=== PATIENT | male | born 1940 | race Caucasian/White ===

== ENCOUNTER 2017-07-10 12:34 | Inpatient (IN) | payer OTHER ==
[2017-07-10] MEDS ORDERED: SODIUM CHLORIDE 0.9% 1000 ML INFUS.BAG IV ONE (12:45)
--- NOTE | 2017-07-10 12:45 | PDOC ---
History of Present Illness - General Chief Complaint: Blood Pressure Problem Stated Complaint: DEHYDRATION Time Seen by Provider: 07/10/17 12:44 - History of Present Illness Initial Comments: 07/10/17 12:59 Mr. 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 On presentation BP noted to be 84/53 with rectal temperature of 102.9. Allergies: NKDA Past History - Past Medical History Allergies/Adverse Reactions: Allergies Allergy/AdvReac Type Severity Reaction Status Date / Time shrimp Allergy Severe Verified 07/10/17 12:41 Home Medications: Ambulatory Orders Apixaban [Eliquis] 5 mg PO BID 03/19/16 Pravastatin Sodium 10 mg PO DAILY 03/19/16 Amiodarone HCl [Cordarone -] 200 mg PO DAILY #30 tablet 03/22/16 Amlodipine Besylate [Norvasc -] 5 mg PO DAILY #30 tablet 03/22/16 Carvedilol [Coreg -] 25 mg PO BID #60 tablet 03/22/16 Furosemide [Lasix -] 40 mg PO DAILY #30 tablet 03/22/16 Lisinopril [Prinivil] 20 mg PO BID #60 tablet 03/22/16 Spironolactone [Aldactone -] 25 mg PO DAILY #30 tablet 03/22/16 Unobtainable 07/10/17 Anemia: No Asthma: No Cancer: No Cardiac Disorders: Yes (A-Fib, Aortic Valve Replacement 02/2016.) CVA: No COPD: No CHF: No Dementia: No Diabetes: No GI Disorders: No Disorders: No HTN: Yes Hypercholesterolemia: No Liver Disease: No Seizures: No Thyroid Disease: No - Surgical History Abdominal Surgery: Yes (ing.hernia) Appendectomy: No Cardiac Surgery: Yes (Heart Valve Replacement 02/2016) Cholecystectomy: No Lung Surgery: No Neurologic Surgery: No Orthopedic Surgery: No - Immunization History Immunization Up to Date: Yes - Suicide/Smoking/Psychosocial Hx Smoking Status: No Smoking History: Never smoked Have you smoked in the past 12 months: No Number of Cigarettes Smoked Daily: 0 Information on smoking cessation initiated: No Hx Alcohol Use: No Drug/Substance Use Hx: No Substance Use Type: None Hx Substance Use Treatment: No Review of Systems - Review of Systems Comments:: 07/10/17 13:04 GENERAL/CONSTITUTIONAL: No fever or chills. No weakness. HEAD, EYES, EARS, NOSE AND THROAT: No change in vision. No ear pain or discharge. No sore throat. CARDIOVASCULAR: No chest pain or shortness of breath RESPIRATORY: No cough, wheezing, or hemoptysis. GASTROINTESTINAL: +3 days of diarrhea. No nausea, vomiting, or constipation. GENITOURINARY: No dysuria, frequency, or change in urination. MUSCULOSKELETAL: No joint or muscle swelling or pain. No neck or back pain. SKIN: No rash NEUROLOGIC: No headache, vertigo, loss of consciousness, or change in strength/ sensation. ENDOCRINE: No increased thirst. No abnormal weight change HEMATOLOGIC/LYMPHATIC: No anemia, easy bleeding, or history of blood clots. ALLERGIC/IMMUNOLOGIC: No hives or skin allergy. *Physical Exam - Vital Signs Last Vital Signs Temp Pulse Resp BP Pulse Ox 99.9 F H 77 16 84/53 95 07/10/17 12:41 07/10/17 12:41 07/10/17 12:41 07/10/17 12:41 07/10/17 12:41 - Physical Exam Comments: 07/10/17 13:04 GENERAL: Awake, alert, and fully oriented, in no acute distress HEAD: No signs of trauma, normocephalic, atraumatic EYES: PERRLA, EOMI, sclera anicteric, conjunctiva clear ENT: Auricles normal inspection, hearing grossly normal, nares patent, oropharynx clear without exudates. Moist mucosa NECK: Normal ROM, supple, no lymphadenopathy, JVD, or masses LUNGS: No distress, speaks full sentences, clear to auscultation bilaterally HEART: Regular rate and rhythm, normal S1 and S2, no murmurs, rubs or gallops, peripheral pulses normal and equal bilaterally. ABDOMEN: Soft, nontender, normoactive bowel sounds. No guarding, no rebound. No masses EXTREMITIES: Normal inspection, Normal range of motion, no edema. No clubbing or cyanosis. NEUROLOGICAL: Cranial nerves II through XII grossly intact. Normal speech, normal gait, no focal sensorimotor deficits SKIN: Warm, Dry, normal turgor, no rashes or lesions noted. ED Treatment Course - LABORATORY CBC & Chemistry Diagram: 07/10/17 13:17 07/10/17 13:17 Medical Decision Making - Medical Decision Making 07/10/17 16:25 Patient labs concerning for white count and lactate as below. Infection source unknown. On further interview patient described urological process last week believed to be cystoscopy. Urology physician Levon Zhang. Vanc/Zosyn given for empiric therapy and will admit pt for further IV ABX. Laboratory Results - last 24 hr 07/10/17 07/10/17 07/10/17 12:46 12:52 13:17 WBC 17.4 H D RBC 4.07 Hgb 12.9 D Hct 38.0 MCV 93.5 MCH 31.7 MCHC 33.9 RDW 13.5 Plt Count 150 D MPV 9.3 D Neutrophils % 87.2 H D Lymphocytes % 8.2 D Monocytes % 4.3 Eosinophils % 0.0 D Basophils % 0.3 PT with INR INR PTT (Actin FS) Sodium Potassium Chloride Carbon Dioxide Anion Gap BUN Creatinine Creat Clearance w eGFR Random Glucose Lactic Acid Calcium Total Bilirubin AST ALT Alkaline Phosphatase Creatine Kinase Troponin I Total Protein Albumin Stool Occult Blood Negative Blood Type O POSITIVE Antibody Screen Negative 07/10/17 07/10/17 07/10/17 13:17 13:17 13:17 WBC RBC Hgb Hct MCV MCH MCHC RDW Plt Count MPV Neutrophils % Lymphocytes % Monocytes % Eosinophils % Basophils % PT with INR 25.70 H INR 2.27 H PTT (Actin FS) 31.1 Sodium 136 Potassium 3.6 Chloride 103 Carbon Dioxide 22 Anion Gap 11 BUN 15 Creatinine 1.9 H D Creat Clearance w eGFR 34.73 Random Glucose 144 H D Lactic Acid 2.1 H* Calcium 7.9 L Total Bilirubin 1.1 H D AST 13 L D ALT 16 D Alkaline Phosphatase 108 Creatine Kinase 79 Troponin I 0.02 D Total Protein 6.1 L Albumin 3.3 L D Stool Occult Blood Blood Type Antibody Screen 07/10/17 16:49 *DC/Admit/Observation/Transfer Diagnosis at time of Disposition: Hypotension Qualifiers: Hypotension type: unspecified hypotension type Qualified Code(s): I95.9 - Hypotension, unspecified - Discharge Dispostion Admit: Yes - Referrals - Patient Instructions - Post Discharge Activity
--- NOTE | 2017-07-10 12:55 | PDOC ---
Attending Attestation - Resident Resident Name: Simeon Cotto - ED Attending Attestation I have performed the following: I have examined & evaluated the patient, The case was reviewed & discussed with the resident, I agree w/resident's findings & plan, Exceptions are as noted - HPI HPI: 07/10/17 12:52 77-year-old male AF on apixaban, HTN, diastolic dysfx, AVR + aortic root replacement presents with 3 days of copious diarrhea. Pt was at urologists office and found to be hypotensive and sent to ED for evaluation. Pt reports weakness and multiple episodes of non bloody diarrhea. No recent hospitalizations, antibiotics. Patient reports having a scope of his prostate 3 days ago at the urologist's office. Pt rectally febrile to 102.9 and hypotensive to 80/50. Denies chest pain, shortness of breath, headache, abdominal pain, lower extremity edema, urinary symptoms. PMD: Dr. Naomie Mejia - Physicial Exam PE: 07/10/17 13:37 GENERAL: Awake, alert, and fully oriented, in no acute distress. Diaphoretic HEAD: No signs of trauma EYES: PERRLA, EOMI, sclera anicteric, conjunctiva clear ENT: Auricles normal inspection, hearing grossly normal, nares patent, oropharynx clear without exudates. dry MM NECK: Normal ROM, supple, no lymphadenopathy, JVD, or masses LUNGS: Breath sounds equal, clear to auscultation bilaterally. No wheezes, and no crackles HEART: Regular rate and rhythm, normal S1 and S2, no murmurs, rubs or gallops ABDOMEN: Soft, nontender, normoactive bowel sounds. No guarding, no rebound. No masses EXTREMITIES: Normal range of motion, no edema. No clubbing or cyanosis. No cords, erythema, or tenderness NEUROLOGICAL: Normal speech, cranial nerves intact, negative pronator drift, 5/ 5 strength in all 4 extremities, normal sensation to light touch in all 4 extremities, normal cerebellar exam, normal gait, normal reflexes and tone SKIN: Warm, Dry, normal turgor, no rashes or lesions noted. - Medical Decision Making 07/10/17 13:38 77-year-old male with multiple medical problems presents with 3 days of copious diarrhea, hypotension, and fever. Patient likely septic either due to colitis or possibly from instrumentation to his prostate 3 days ago at the urologist's office. Will do a full infectious workup, cover broadly and admit
[2017-07-10] MEDS ORDERED: VANCOMYCIN 1 GRAM (PRE-DOCKED) 1,000 MG/250 ML BAG IVPB ONE ×2 (13:21→14:05)
[2017-07-10 13:30] LABS: BASOPHIL 0.3 % (0-2.0); MCH 31.7 pg (25.7-33.7); MCHC 33.9 g/dl (32.0-35.9); MEAN CELL VOLUME 93.5 fl (80-96); MEAN PLT VOLUME 9.3 fl (7.5-11.1); NEUTROPHILS 87.2 % (42.8-82.8); PLATELET COUNT 150 K/MM3 (134-434); RDW 13.5 % (11.9-15.9); WHITE BLOOD COUNT 17.4 K/mm3 (4.0-10.0)
[2017-07-10] MEDS ORDERED: PIPERACILLIN/TAZOB 3.375 GM/50 ML PRE-DOCKED IVPB ONE (13:30)
[2017-07-10] MEDS ORDERED: SODIUM CHLORIDE 0.9% 500 ML INFUS.BAG IV ONE (13:52)
[2017-07-10 13:54] LABS: INR 2.27 (0.82-1.09); PROTHROMBIN TIME (PATIENT) 25.7 SEC (9.98-11.88)
[2017-07-10 13:56] LABS: ACTIVATED PTT 31.1 SECONDS (26.9-34.4); ALBUMIN 3.3 g/dl (3.4-5.0); ANION GAP 11 (8-16); BILIRUBIN,TOTAL 1.1 mg/dL (0.2-1.0); CALCIUM 7.9 mg/dL (8.5-10.1); CO2 22 mmol/L (21-32); CPK 79 IU/L (39-308); CREATININE 1.9 mg/dL (0.7-1.3); GLUCOSE,RANDOM 144 mg/dL (74-106); SGOT/AST 13 U/L (15-37); SGPT/ALT 16 U/L (12-78); TOT PROT 6.1 g/dl (6.4-8.2)
[2017-07-10 13:58] LABS: ALK PHOS 108 U/L (45-117); TROPONIN I 0.02 ng/ml (0.00-0.05)
[2017-07-10] MEDS ORDERED: PIPERACILLIN/TAZOB 3.375 GM 3.375 GM/50 ML BAG IVPB ONE (14:04)
[2017-07-10 16:39] LABS: URINE APPEARANCE SLCLOUDY; URINE BILIRUBIN NEGATIVE (NEGATIVE); URINE BLOOD 3+ (NEGATIVE); URINE COLOR AMBER; URINE GLUCOSE (UA) NEGATIVE (NEGATIVE); URINE KETONE NEGATIVE (NEGATIVE); URINE NITRITE NEGATIVE (NEGATIVE); URINE UROBILINOGEN NEGATIVE mg/dL (0.2-1.0)
[2017-07-10 16:44] LABS: URINE PROTEIN 2+ (NEGATIVE)
[2017-07-10] MEDS ORDERED: SODIUM CHLORIDE 1,000 ML IV SCH ×2 (16:45→16:47)
[2017-07-10 16:46] LABS: URINE HYALINE CAST 15 /lpf; URINE MUCUS RARE; URINE RBC 163 /hpf (0-3); URINE WBC 19 /hpf (3-5)
[2017-07-10 18:20] LABS: URINE LEUK ESTERASE Negative (NEGATIVE)
[2017-07-10] MEDS: APIXABAN 5 MG TABLET PO SCH (21:10)
[2017-07-10] MEDS: PIPERACILLIN/TAZOB 2.25 GM 2.25 GM/50 ML BAG IVPB SCH (21:11)
[2017-07-11] MEDS: PIPERACILLIN/TAZOB 2.25 GM 2.25 GM/50 ML BAG IVPB SCH ×2 (03:22→09:42)
--- NOTE | 2017-07-11 07:50 | PN ---
Progress Note, Physician Chief Complaint: ID 77 year male history of aortic root replacement and AVR presents with fever an chills after a prostate biopsy 4 days. Got IV antibiotics in office followed by oral therapy antibiotic. Given Zosyn - Current Medication List Current Medications: Active Medications Acetaminophen (Tylenol -) 650 mg PO Q6H PRN PRN Reason: FEVER OR PAIN Amiodarone HCl (Cordarone -) 200 mg PO DAILY CARLYLE Apixaban (Eliquis -) 5 mg PO BID [facility] Last Admin: 07/10/17 21:10 Dose: 5 mg Piperacillin/Tazobactam/Dextrose (Zosyn 2.25gm Ivpb (Premix)) 2.25 gm in 50 mls @ 100 mls/hr IVPB Q6H-IV CARLYLE PRN Reason: Protocol Sodium Chloride (Normal Saline -) 1,000 mls @ 60 mls/hr IV ASDIR [facility] Last Admin: 07/10/17 18:10 Dose: 60 mls/hr - Objective Vital Signs: Vital Signs Temperature 99 F 07/11/17 06:05 Pulse Rate 92 H 07/11/17 06:05 Respiratory Rate 20 07/11/17 06:05 Blood Pressure 104/64 07/11/17 06:05 O2 Sat by Pulse Oximetry (%) 96 07/10/17 21:00 Constitutional: Yes: Well Nourished, No Distress HENT: Yes: WNL, Atraumatic Neck: Yes: WNL, Supple Cardiovascular: Yes: Murmur, S1, S2 Respiratory: Yes: WNL, Regular, CTA Bilaterally Gastrointestinal: Yes: Soft Labs: INR, PTT INR 2.27 (0.82-1.09) H 07/10/17 13:17 Assessment/Plan Microbiology Laboratory Tests 07/10/17 07/10/17 07/10/17 13:17 13:17 13:17 WBC 17.4 H D Hgb 12.9 D Hct 38.0 Plt Count 150 D INR 2.27 H BUN 15 Creatinine 1.9 H D Lactic Acid Total Bilirubin 1.1 H D AST 13 L D ALT 16 D Ur Leukocyte Esterase 07/10/17 07/10/17 07/10/17 13:17 16:20 16:20 WBC Hgb Hct Plt Count INR BUN Creatinine Lactic Acid 2.1 H* 1.7 Total Bilirubin AST ALT Ur Leukocyte Esterase Negative 07/11/17 06:30 WBC Pending Hgb Pending Hct Pending Plt Count Pending INR BUN Creatinine Lactic Acid Total Bilirubin AST ALT Ur Leukocyte Esterase Assessment Sepsis post prostate biopsy previous antibiotic given ? resistant organism No positive blood culture so far this am Plan Meropenem for ? ESBL pending cultures Possible nothing will grow on culture Vinny CAMACHO
[2017-07-11 08:25] LABS: BASOPHIL 0.2 % (0-2.0); EOSINOPHIL 0.1 % (0-4.5); MCH 31.7 pg (25.7-33.7); MCHC 34.2 g/dl (32.0-35.9); MEAN CELL VOLUME 92.7 fl (80-96); MEAN PLT VOLUME 9.7 fl (7.5-11.1); NEUTROPHILS 84.7 % (42.8-82.8); PLATELET COUNT 133 K/MM3 (134-434); RDW 13.8 % (11.9-15.9); WHITE BLOOD COUNT 15.7 K/mm3 (4.0-10.0)
[2017-07-11 08:26] LABS: ALK PHOS 85 U/L (45-117); ANION GAP 8 (8-16); CALCIUM 7.8 mg/dL (8.5-10.1); CO2 23 mmol/L (21-32); CREATININE 1.6 mg/dL (0.7-1.3); GLUCOSE,RANDOM 90 mg/dL (74-106)
[2017-07-11 08:28] LABS: SGOT/AST 12 U/L (15-37); SGPT/ALT 16 U/L (12-78); TOT PROT 5.8 g/dl (6.4-8.2)
--- NOTE | 2017-07-11 08:29 | CONS ---
DATE OF CONSULTATION: DATE OF DICTATION: 07/11/2017 INFECTIOUS DISEASE CONSULTATION HISTORY OF PRESENT ILLNESS: This is a 77-year-old [place] male whom I am asked to see for evaluation of fever and shaking chills. The patient has a history of an aortic root and aortic valve replacement previously. He has atrial fibrillation, hypertension and a "prostate issue" for which he apparently underwent an outpatient prostate biopsy 4 days ago. According to the patient, he was given what may have been intravenous antibiotics prior to the procedure, then followed by an outpatient antibiotic, although he did not know the name. Yesterday he developed fever to 103 with shaking chills, and is admitted to the hospital and had been given vancomycin and Zosyn empirically in the emergency room. I am asked to see him for further evaluation. Currently he denies any urinary complaints, abdominal pain, fever, chills, chest pain, shortness of breath, cough. PAST MEDICAL HISTORY: As noted above. MEDICATIONS: Eliquis, pravastatin, amiodarone, amlodipine, carvedilol, Lasix, Prinivil, Aldactone. ALLERGIES: SHRIMP. SOCIAL HISTORY: Nonsmoker. [place] immigrant, living in the [place] for many years. He previously worked at the [employer] for [employer], although has been retired for several years. No alcohol use. He lives with his family. No obvious HIV risk factors. FAMILY HISTORY: Reviewed and noncontributory. REVIEW OF SYSTEMS: Respiratory: No cough, shortness of breath, wheezing. Cardiac: No chest pain, palpitations. Gastrointestinal: No abdominal pain, nausea, vomiting, diarrhea. Genitourinary: No dysuria, hematuria. PHYSICAL EXAMINATION: Vital Signs: Upon admission his temperature was 99.9, blood pressure 84/53, respirations 16, O2 saturation 95%. General: He appeared in no acute distress at this time. Neck: Supple, with no adenopathy. Lungs: Clear to percussion and auscultation. Heart: S1, S2. Irregular, with a systolic murmur noted. Abdomen: Soft, nontender. Normoactive bowel sounds. No guarding, rebound or mass. Extremities: No clubbing, cyanosis or edema. DIAGNOSTIC STUDIES: White count on admission 17.4, hemoglobin 12.6, platelets 150, polys 87%, lymphs 8, monos 4. INR 2.27. BUN 1.9, creatinine clearance 35, lactic acid 2.1. Liver enzymes within normal limits. UA screening negative for leukocyte esterase, with 3+ blood. Blood cultures this morning thus far no growth. Urine culture pending. Chest x-ray shows no acute chest pathology. ASSESSMENT: A 77-year-old male with cardiac history, including prosthetic aortic valve with aortic root replacement, presents with sepsis syndrome, urinary tract source, following prostate biopsy. He had been previously treated with antibiotics parenterally and as an outpatient, and we have seen extended-spectrum beta lactamase organisms in this clinical setting before. RECOMMENDATIONS: We will empirically treat him with meropenem 500 mg q.8 hours, pending final blood and urine cultures. Hopefully this can be a short course, depending on his final culture reports. I would not be surprised, however, if cultures are no growth, based on previous treatment. At which point we can consider switching him to an oral antibiotic upon discharge in the next 48 to 72 hours, depending on clinical course and culture results. NEETA TORRES M.D. [id number]
[2017-07-11] MEDS: APIXABAN 5 MG TABLET PO SCH ×2 (09:41→21:43)
[2017-07-11] MEDS: AMIODARONE HCL 200 MG TABLET (FP) PO SCH (09:41)
[2017-07-11] MEDS ORDERED: MEROPENEM 500 MG VIAL (RESTRICTED TO ID) IVPB SCH (10:00)
--- NOTE | 2017-07-11 10:01 | HP ---
Admitting History and Physical - Primary Care Physician PCP: Eusebio Sebastian - Admission Chief Complaint: fever History of Present Illness: ER HISTORY - History of Present Illness Initial Comments: 07/10/17 12:59 Mr. 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 On presentation BP noted to be 84/53 with rectal temperature of 102.9. Pt examined by me on the floors He is known to me from previous admission He had a prostate biopsy done a few days ago with DR Smith -- -- was given PO antibiotics-- afterwards had diarrhea for 3 days , with low BP and fever yesterday.In the ER, received iv fluids, one dose of Vanco and Zosyn. Pancultured-- pending. Today pt feels well. He is sitting up in chair , no distress. Denies abdominal pain , dysuria, suprapubic pain , dizziness, SOB, diarrhea. History Source: Patient Limitations to Obtaining History: No Limitations - Past Medical History Cardiovascular: Yes: AFIB, CHF (diastolic dysfunction), HTN - Past Surgical History Past Surgical History: Yes: Valve Replacement - Smoking History Smoking history: Never smoked Have you smoked in the past 12 months: No Aproximately how many cigarettes per day: 0 - Alcohol/Substance Use Hx Alcohol Use: No Home Medications - Allergies Allergies/Adverse Reactions: Allergies Allergy/AdvReac Type Severity Reaction Status Date / Time shrimp Allergy Severe Verified 07/10/17 12:41 - Home Medications Home Medications: Ambulatory Orders Apixaban [Eliquis] 5 mg PO BID 03/19/16 Pravastatin Sodium 10 mg PO DAILY 03/19/16 Amiodarone HCl [Cordarone -] 200 mg PO DAILY #30 tablet 03/22/16 Amlodipine Besylate [Norvasc -] 5 mg PO DAILY #30 tablet 03/22/16 Carvedilol [Coreg -] 25 mg PO BID #60 tablet 03/22/16 Furosemide [Lasix -] 40 mg PO DAILY #30 tablet 03/22/16 Lisinopril [Prinivil] 20 mg PO BID #60 tablet 03/22/16 Spironolactone [Aldactone -] 25 mg PO DAILY #30 tablet 03/22/16 Unobtainable 07/10/17 Review of Systems - Review of Systems Constitutional: reports: Fever. denies: Loss of Appetite, Weakness Cardiovascular: denies: Chest Pain Respiratory: denies: Cough, SOB Genitourinary: denies: Burning, Discharge, Dysuria, Flank Pain, Frequency, Hematuria, Urgency Physical Examination Vital Signs: Vital Signs Temperature 99 F 07/11/17 06:05 Pulse Rate 92 H 07/11/17 06:05 Respiratory Rate 20 07/11/17 06:05 Blood Pressure 104/64 07/11/17 06:05 O2 Sat by Pulse Oximetry (%) 96 07/10/17 21:00 Constitutional: Yes: No Distress, Calm Cardiovascular: Yes: Pulse Irregular, Murmur Respiratory: Yes: CTA Bilaterally Gastrointestinal: Yes: Normal Bowel Sounds, Soft, Abdomen, Obese. No: Distention, Tenderness Edema: No Psychiatric: Yes: Alert, Oriented Labs: CBC, BMP 07/11/17 06:30 07/11/17 06:30 Imaging - Results Chest X-ray: Image Reviewed (clear) Ultrasound: Report Reviewed EKG: Image Reviewed (NSR) Problem List - Problems (1) Sepsis Code(s): A41.9 - SEPSIS, UNSPECIFIED ORGANISM (2) UTI (urinary tract infection) Code(s): N39.0 - URINARY TRACT INFECTION, SITE NOT SPECIFIED (3) History of prostate biopsy Code(s): Z98.890 - OTHER SPECIFIED POSTPROCEDURAL STATES (4) Acute renal failure Code(s): N17.9 - ACUTE KIDNEY FAILURE, UNSPECIFIED Qualifiers: Acute renal failure type: unspecified Qualified Code(s): N17.9 - Acute kidney failure, unspecified Assessment/Plan PLAN Sepsis, UTI -- h/o prostate biopsy -- ID eval noted -- on IV Meropenum -- cultures pending -- has a low grade temperature CHF -- diastolic -- hypovolemic-- Lasix and Aldactone on hold -- received iv fluids for last 24 hours will dc now-- clinically not in volume overload -- will restart Lasix prior to discharge HTN -- BP lower side -- meds on hold for now -- monitor BP Afib -- rate is controlled --- on Elliquis -- ON Amiodarone -- will resume Coreg DVT prophylaxis-- Eliquis Time spent-- 40 min
[2017-07-11] MEDS: MEROPENEM 500 MG PUSH 500 MG/10 ML DISP.SYRIN IVPUSH SCH ×2 (12:14→18:04)
[2017-07-11] MEDS: ACETAMINOPHEN 325 MG TABLET (FP) PO PRN ×2 (14:45→21:43)
[2017-07-11] MEDS ORDERED: PT OWN MED DRAWER 7, Y5N ONE ×3 (17:45→22:29)
[2017-07-11] MEDS: CARVEDILOL 25 MG TABLET (FP) PO SCH (21:43)
--- NOTE | 2017-07-11 21:48 | EKG ---
Test Reason : Blood Pressure : / mmHG Vent. Rate : 078 BPM Atrial Rate : 074 BPM P-R Int : 000 ms QRS Dur : 136 ms QT Int : 414 ms P-R-T Axes : 000 031 043 degrees QTc Int : 471 ms ATRIAL FIBRILLATION RIGHT BUNDLE BRANCH BLOCK ABNORMAL ECG WHEN COMPARED WITH ECG OF 19-MAR-2016 11:49, VENT. RATE HAS DECREASED BY 56 BPM Confirmed by CARLOS RIVERA MD ([id number]) on 07/11/2017 9:47:53 PM Referred By: Confirmed By:CARLOS RIVERA MD
[2017-07-12] MEDS: MEROPENEM 500 MG PUSH 500 MG/10 ML DISP.SYRIN IVPUSH SCH ×3 (01:34→19:12)
[2017-07-12] MEDS: ACETAMINOPHEN 325 MG TABLET (FP) PO PRN (07:00)
[2017-07-12 07:51] LABS: BASOPHIL 0.2 % (0-2.0); EOSINOPHIL 0.5 % (0-4.5); MCH 31.9 pg (25.7-33.7); MCHC 34.1 g/dl (32.0-35.9); MEAN CELL VOLUME 93.7 fl (80-96); MEAN PLT VOLUME 9.7 fl (7.5-11.1); NEUTROPHILS 81.4 % (42.8-82.8); PLATELET COUNT 133 K/MM3 (134-434); RDW 13.7 % (11.9-15.9); WHITE BLOOD COUNT 10.9 K/mm3 (4.0-10.0)
--- NOTE | 2017-07-12 08:23 | PN ---
Progress Note, Physician Chief Complaint: ID Patient still febrile Reports diarrhea several times and patient admits he had this before admission and was on antibiotics Currently Zosyn Temp 101 - Current Medication List Current Medications: Active Medications Acetaminophen (Tylenol -) 650 mg PO Q6H PRN PRN Reason: FEVER OR PAIN Last Admin: 07/12/17 07:00 Dose: 650 mg Amiodarone HCl (Cordarone -) 200 mg PO DAILY [facility] Last Admin: 07/11/17 09:41 Dose: 200 mg Apixaban (Eliquis -) 5 mg PO BID CARLYLE Last Admin: 07/11/17 21:43 Dose: 5 mg Carvedilol (Coreg -) 25 mg PO BID [facility] Last Admin: 07/11/17 21:43 Dose: 25 mg Meropenem (Merrem (Restricted To Id) -) 500 mg in 10 mls @ 120 mls/hr IVPUSH Q8H-IV CARLYLE Last Admin: 07/12/17 01:34 Dose: 120 mls/hr - Objective Vital Signs: Vital Signs Temperature 101 F H 07/12/17 06:50 Pulse Rate 91 H 07/12/17 06:50 Respiratory Rate 20 07/12/17 06:50 Blood Pressure 126/68 07/12/17 06:50 O2 Sat by Pulse Oximetry (%) 96 07/11/17 21:00 Constitutional: Yes: Well Nourished, No Distress Eyes: Yes: WNL, Conjunctiva Clear HENT: Yes: WNL, Atraumatic Neck: Yes: WNL, Supple Cardiovascular: Yes: S1, S2 Respiratory: Yes: WNL, Regular, CTA Bilaterally Gastrointestinal: Yes: Soft. No: Tenderness Labs: CBC, BMP 07/12/17 07:23 INR, PTT INR 2.27 (0.82-1.09) H 07/10/17 13:17 Assessment/Plan Microbiology 07/10/17 14:45 Blood - Peripheral Venous Blood Culture - Preliminary NO GROWTH OBTAINED AFTER 24 HOURS, INCUBATION TO CONTINUE FOR 4 DAYS. 07/10/17 13:17 Blood - Peripheral Venous Blood Culture - Preliminary NO GROWTH OBTAINED AFTER 24 HOURS, INCUBATION TO CONTINUE FOR 4 DAYS. Laboratory Tests 07/10/17 07/10/17 07/10/17 13:17 13:17 16:20 WBC 17.4 H D Plt Count BUN Creatinine Creat Clearance w eGFR Lactic Acid 2.1 H* AST ALT Alkaline Phosphatase Ur Leukocyte Esterase Negative 07/10/17 07/11/17 07/11/17 16:20 06:30 06:30 WBC 15.7 H Plt Count BUN 16 Creatinine 1.6 H Creat Clearance w eGFR 42.35 Lactic Acid 1.7 AST 12 L ALT 16 Alkaline Phosphatase 85 D Ur Leukocyte Esterase 07/12/17 07:23 WBC 10.9 H D Plt Count 133 L BUN Creatinine Creat Clearance w eGFR Lactic Acid AST ALT Alkaline Phosphatase Ur Leukocyte Esterase Assessment Presumptive diagnosis was post urologic procedure UTI prostate biopsy but now with fever and diarrhea I have to question this. Urine c/s pending Could fever be secondary to Clostridium difficile infection ?? Plan Await final cultures Add oral metronidazole 500mg tid Send the stool noting that diarrhea PRECEEDED admission Vinny CAMACHO
[2017-07-12 08:35] LABS: ALBUMIN 2.9 g/dl (3.4-5.0); ANION GAP 8 (8-16); CO2 24 mmol/L (21-32); GLUCOSE,RANDOM 94 mg/dL (74-106)
[2017-07-12 08:40] LABS: ALK PHOS 82 U/L (45-117); BILIRUBIN,TOTAL 0.9 mg/dL (0.2-1.0); CREATININE 1.3 mg/dL (0.7-1.3); SGOT/AST 30 U/L (15-37); SGPT/ALT 25 U/L (12-78); TOT PROT 5.7 g/dl (6.4-8.2)
--- NOTE | 2017-07-12 10:38 | PN ---
Progress Note, Physician Chief Complaint: Pt had diarrhea-- loose stools about 3 times last night-- he said after eating food, he felt uncomfortable and had diarrhea. He had diarrhea prior to arival here in hospital-- stool was not collected for cdiff on admission as he did not have diarrhea afterwards. Today , no bm no abdominal pain , nausea, vomiting, SOB, chest pain , dizziness, palpitations - Current Medication List Current Medications: Active Medications Acetaminophen (Tylenol -) 650 mg PO Q6H PRN PRN Reason: FEVER OR PAIN Last Admin: 07/12/17 07:00 Dose: 650 mg Amiodarone HCl (Cordarone -) 200 mg PO DAILY [facility] Last Admin: 07/11/17 09:41 Dose: 200 mg Apixaban (Eliquis -) 5 mg PO BID [facility] Last Admin: 07/11/17 21:43 Dose: 5 mg Carvedilol (Coreg -) 25 mg PO BID [facility] Last Admin: 07/11/17 21:43 Dose: 25 mg Meropenem (Merrem (Restricted To Id) -) 500 mg in 10 mls @ 120 mls/hr IVPUSH Q8H-IV [facility] Last Admin: 07/12/17 01:34 Dose: 120 mls/hr Metronidazole (Flagyl -) 500 mg PO TID [facility] - Objective Vital Signs: Vital Signs Temperature 101 F H 07/12/17 06:50 Pulse Rate 91 H 07/12/17 06:50 Respiratory Rate 20 07/12/17 06:50 Blood Pressure 126/68 07/12/17 06:50 O2 Sat by Pulse Oximetry (%) 96 07/11/17 21:00 Constitutional: Yes: No Distress Cardiovascular: Yes: Pulse Irregular, Murmur Respiratory: Yes: CTA Bilaterally Gastrointestinal: Yes: Normal Bowel Sounds, Soft. No: Distention, Tenderness Edema: No Psychiatric: Yes: Alert, Oriented Labs: CBC, BMP 07/12/17 07:23 07/12/17 07:23 INR, PTT INR 2.27 (0.82-1.09) H 07/10/17 13:17 Problem List - Problems (1) Sepsis Code(s): A41.9 - SEPSIS, UNSPECIFIED ORGANISM (2) UTI (urinary tract infection) Code(s): N39.0 - URINARY TRACT INFECTION, SITE NOT SPECIFIED (3) History of prostate biopsy Code(s): Z98.890 - OTHER SPECIFIED POSTPROCEDURAL STATES (4) Acute renal failure Code(s): N17.9 - ACUTE KIDNEY FAILURE, UNSPECIFIED Qualifiers: Acute renal failure type: unspecified Qualified Code(s): N17.9 - Acute kidney failure, unspecified Assessment/Plan PLAN Sepsis, UTI -- h/o prostate biopsy -- ID follow up noted -- on IV Meropenum -- cultures negative, but he did receive po antibiotics post procedure -- temp elevated yesterday and today -- Flagyl started -- stool for cdiff pending-- though pt has no BM now CHF -- diastolic -- hypovolemic-- Lasix and Aldactone on hold -- received iv fluids for last 24 hours will dc now-- clinically not in volume overload -- will restart Lasix prior to discharge HTN -- BP lower side -- Coreg restarted -- monitor BP Afib -- rate is controlled --- on Elliquis -- ON Amiodarone -- will resume Coreg DVT prophylaxis-- Eliquis
[2017-07-12] MEDS ORDERED: PT OWN MED DRAWER 7, Y5N ONE ×2 (10:47→17:20)
[2017-07-12] MEDS: metroNIDAZOLE 250 MG TABLET PO SCH ×3 (10:50→21:16)
[2017-07-12] MEDS: APIXABAN 5 MG TABLET PO SCH ×2 (10:51→21:16)
[2017-07-12] MEDS: CARVEDILOL 25 MG TABLET (FP) PO SCH ×2 (10:51→21:16)
[2017-07-12] MEDS: AMIODARONE HCL 200 MG TABLET (FP) PO SCH (10:51)
[2017-07-13] MEDS: MEROPENEM 500 MG PUSH 500 MG/10 ML DISP.SYRIN IVPUSH SCH ×2 (01:21→09:26)
[2017-07-13] MEDS: metroNIDAZOLE 250 MG TABLET PO SCH ×2 (05:36→13:36)
[2017-07-13 09:19] VITALS: BP 126/84; PULSE 92; TEMP 98.4
[2017-07-13] MEDS ORDERED: PT OWN MED DRAWER 7, Y5N ONE (09:22)
[2017-07-13] MEDS: AMIODARONE HCL 200 MG TABLET (FP) PO SCH (09:25)
[2017-07-13] MEDS: CARVEDILOL 25 MG TABLET (FP) PO SCH (09:25)
[2017-07-13] MEDS: APIXABAN 5 MG TABLET PO SCH (09:26)
--- NOTE | 2017-07-13 09:59 | PN ---
Progress Note, Physician Chief Complaint: ID Feels well temp down No diarrhea - Current Medication List Current Medications: Active Medications Acetaminophen (Tylenol -) 650 mg PO Q6H PRN PRN Reason: FEVER OR PAIN Last Admin: 07/12/17 07:00 Dose: 650 mg Amiodarone HCl (Cordarone -) 200 mg PO DAILY [facility] Last Admin: 07/13/17 09:25 Dose: 200 mg Apixaban (Eliquis -) 5 mg PO BID [facility] Last Admin: 07/13/17 09:26 Dose: 5 mg Carvedilol (Coreg -) 25 mg PO BID [facility] Last Admin: 07/13/17 09:25 Dose: 25 mg Meropenem (Merrem (Restricted To Id) -) 500 mg in 10 mls @ 120 mls/hr IVPUSH Q8H-IV [facility] Last Admin: 07/13/17 09:26 Dose: 120 mls/hr Metronidazole (Flagyl -) 500 mg PO TID [facility] Last Admin: 07/13/17 05:36 Dose: 500 mg - Objective Vital Signs: Vital Signs Temperature 98.4 F 07/13/17 09:18 Pulse Rate 92 H 07/13/17 09:18 Respiratory Rate 20 07/13/17 09:18 Blood Pressure 126/84 07/13/17 09:18 O2 Sat by Pulse Oximetry (%) 96 07/12/17 21:00 Constitutional: Yes: Well Nourished, No Distress Neck: Yes: WNL, Supple Cardiovascular: Yes: Regular Rate and Rhythm, S1, S2 Respiratory: Yes: WNL, Regular, CTA Bilaterally Gastrointestinal: Yes: WNL, Normal Bowel Sounds, Soft Labs: CBC, BMP 07/12/17 07:23 07/12/17 07:23 INR, PTT INR 2.27 (0.82-1.09) H 07/10/17 13:17 Assessment/Plan Microbiology 07/10/17 16:20 Urine - Urine Clean Catch Urine Culture - Final NO GROWTH OBTAINED 07/10/17 14:45 Blood - Peripheral Venous Blood Culture - Preliminary NO GROWTH OBTAINED AFTER 48 HOURS, INCUBATION TO CONTINUE FOR 3 DAYS. 07/10/17 13:17 Blood - Peripheral Venous Blood Culture - Preliminary NO GROWTH OBTAINED AFTER 48 HOURS, INCUBATION TO CONTINUE FOR 3 DAYS. Laboratory Tests 07/10/17 07/11/17 07/12/17 13:17 06:30 07:23 WBC 17.4 H D 15.7 H 10.9 H D Hgb 11.9 Plt Count 133 L BUN Creatinine Creat Clearance w eGFR 07/12/17 07:23 WBC Hgb Plt Count BUN 16 Creatinine 1.3 Creat Clearance w eGFR 53.82 Assessment Post prostate biopsy fever resolved cultures no growth ( previous treatment) Diarrhea ? C diff but specimen ordered not sent Plan Discharge Flagyl 500mg tid 10 days Vantin for UTI 100mg tid for 5 days more Vinny CAMACHO
--- NOTE | 2017-07-13 12:56 | DS ---
Physical Examination Vital Signs: Vital Signs Temperature 98.4 F 07/13/17 09:18 Pulse Rate 92 H 07/13/17 09:18 Respiratory Rate 20 07/13/17 09:18 Blood Pressure 126/84 07/13/17 09:18 O2 Sat by Pulse Oximetry (%) 96 07/12/17 21:00 Constitutional: Yes: No Distress, Calm Eyes: Yes: WNL, PERRL Neck: Yes: Supple Cardiovascular: Yes: Regular Rate and Rhythm, S1, S2 Respiratory: Yes: Regular, CTA Bilaterally Gastrointestinal: Yes: Normal Bowel Sounds, Soft Edema: No Neurological: Yes: Alert, Oriented Labs: CBC, BMP 07/12/17 07:23 07/12/17 07:23 Discharge Summary Reason For Visit: HYPOTENSION, sepsis Current Active Problems History of prostate biopsy (Acute) Hypotension (Acute) Sepsis (Acute) UTI (urinary tract infection) (Acute) Hospital Course: Mr. 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 On presentation BP noted to be 84/53 with rectal temperature of 102.9. He had a prostate biopsy done a few days ago with DR Smith -- -- was given PO antibiotics-- afterwards had diarrhea for 3 days , with low BP and fever yesterday.In the ER, received iv fluids, one dose of Vanco and Zosyn. Pancultured-BC negative Today pt feels well. He is sitting up in chair , no distress. Denies abdominal pain , dysuria, suprapubic pain , dizziness, SOB, diarrhea. hospital course seen by ID PLACED ON IV ANTIBIOTICS HAD diarrhea, but resolved, unable to send for cdiff fever resolved cultures- BC, UC negative patient feels well stable for d/c with oral antibiotics follow up with urology and PMD UPON D/C Condition: Stable - Instructions Disposition: HOME - Home Medications Comprehensive Discharge Medication List: Ambulatory Orders Apixaban [Eliquis] 5 mg PO BID 03/19/16 Pravastatin Sodium 10 mg PO DAILY 03/19/16 Amiodarone HCl [Cordarone -] 200 mg PO DAILY #30 tablet 03/22/16 Amlodipine Besylate [Norvasc -] 5 mg PO DAILY #30 tablet 03/22/16 Carvedilol [Coreg -] 25 mg PO BID #60 tablet 03/22/16 Furosemide [Lasix -] 40 mg PO DAILY #30 tablet 03/22/16 Lisinopril [Prinivil] 20 mg PO BID #60 tablet 03/22/16 Spironolactone [Aldactone -] 25 mg PO DAILY #30 tablet 03/22/16 Unobtainable 07/10/17
--- NOTE | 2017-07-13 13:14 | PN ---
Progress Note (short form) - Note Progress Note: Pt examined alongside CLAIMS VICE PRESIDENT Janett Pt discharged today on PO antibiotics stable for dc home ID follow up noted Problem List - Problems (1) Sepsis Code(s): A41.9 - SEPSIS, UNSPECIFIED ORGANISM (2) UTI (urinary tract infection) Code(s): N39.0 - URINARY TRACT INFECTION, SITE NOT SPECIFIED (3) History of prostate biopsy Code(s): Z98.890 - OTHER SPECIFIED POSTPROCEDURAL STATES (4) Acute renal failure Code(s): N17.9 - ACUTE KIDNEY FAILURE, UNSPECIFIED Qualifiers: Acute renal failure type: unspecified Qualified Code(s): N17.9 - Acute kidney failure, unspecified
== END 2017-07-13 13:45 | disposition home or self-care (01) | DRG 862 ==
LOC: JER 12:34 → JERBED 16:32 → J8W 19:27
PROVIDERS: ADMIT Internal Medicine; ATTEND Internal Medicine
DX: T81.4XXA Infection following a procedure, initial encounter (principal); A41.89 Other specified sepsis; N17.9 Acute kidney failure, unspecified; N39.0 Urinary tract infection, site not specified; I50.30 Unspecified diastolic (congestive) heart failure; R50.9 Fever, unspecified; I48.91 Unspecified atrial fibrillation; A08.8 Other specified intestinal infections; E86.1 Hypovolemia; I11.0 Hypertensive heart disease with heart failure; Y83.8 Other surgical procedures as the cause of abnormal reaction of the patient, or of later complication, without mention of misadventure at the time of the procedure; Y92.89 Other specified places as the place of occurrence of the external cause; Z95.2 Presence of prosthetic heart valve; Z98.890 Other specified postprocedural states
CPT/HCPCS: 36415; 71010-TC; 76775-TC; 76856-TC; 80053; 81003; 81015; 82272; 82550; 82803; 83605; 84484; 85025; 85610; 85730; 86850; 86900; 86901; 87040; 87086; 93005; 93010; 99283-25

== ENCOUNTER 2017-08-15 06:38 | Day surgery (SDC) | payer OTHER ==
[2017-08-15 08:07] VITALS: BMI 28.5
[2017-08-15] MEDS ORDERED: PROPOFOL 20 ML ONE (08:26)
--- NOTE | 2017-08-15 09:23 | PN ---
Progress Note (short form) - Note Progress Note: Procedure: Cardioversion Pre-procedure diagnosis: Persistent atrial fibrillation, h/o bioAVR and aortic root replacement, diagnostic dysfunction, HTN Post-procedure diagnosis: Permanent atrial fibrillation After informed consent obtained, Eliquis compliance confirmed and induction with Propofol by anesthesia, 4 attempts at DCCV at max 200J was performed with unsuccessful maintainance of sinus rhythm Complications: None Post DCCV EKG: Afib @ 81 PVC May d/c home post-procedure with plan for f/u with me in office post-procedure Saturday08/20/2017 9:30 AM, continue rate-control strategy of permanent afib Problem List - Problems (1) Atrial fibrillation Code(s): I48.91 - UNSPECIFIED ATRIAL FIBRILLATION Qualifiers: Atrial fibrillation type: permanent Qualified Code(s): I48.2 - Chronic atrial fibrillation (2) Hyperlipidemia Code(s): E78.5 - HYPERLIPIDEMIA, UNSPECIFIED Qualifiers: Hyperlipidemia type: pure hypercholesterolemia Qualified Code(s): E78.00 - Pure hypercholesterolemia, unspecified; E78.0 - Pure hypercholesterolemia (3) Hypertension Code(s): I10 - ESSENTIAL (PRIMARY) HYPERTENSION Qualifiers: Hypertension type: essential hypertension Qualified Code(s): I10 - Essential (primary) hypertension (4) Premature ventricular contraction Code(s): I49.3 - VENTRICULAR PREMATURE DEPOLARIZATION (5) S/P aortic aneurysm repair Code(s): Z98.89 - OTHER SPECIFIED POSTPROCEDURAL STATES * DO NOT USE *; Z86.79 - PERSONAL HISTORY OF OTHER DISEASES OF THE CIRCULATORY SYSTEM (6) Status post aortic valve replacement with bioprosthetic valve Code(s): Z95.4 - PRESENCE OF OTHER HEART-VALVE REPLACEMENT (7) Diastolic dysfunction without heart failure Code(s): I51.9 - HEART DISEASE, UNSPECIFIED (8) Encounter for cardioversion procedure Code(s): Z01.89 - ENCOUNTER FOR OTHER SPECIFIED SPECIAL EXAMINATIONS
[2017-08-15 09:30] VITALS: TEMP 98
[2017-08-15 09:50] VITALS: PULSE 82
[2017-08-15 11:43] VITALS: BP 139/86
--- NOTE | 2017-08-15 13:03 | EKG ---
Test Reason : Blood Pressure : / mmHG Vent. Rate : 072 BPM Atrial Rate : 090 BPM P-R Int : 000 ms QRS Dur : 148 ms QT Int : 440 ms P-R-T Axes : 000 003 010 degrees QTc Int : 481 ms ATRIAL FIBRILLATION WITH PREMATURE VENTRICULAR OR ABERRANTLY CONDUCTED COMPLEXES RIGHT BUNDLE BRANCH BLOCK ABNORMAL ECG WHEN COMPARED WITH ECG OF 10-JUL-2017 14:26, NO SIGNIFICANT CHANGE WAS FOUND Confirmed by KAY ELMORE MD ([id number]) on 08/15/2017 1:02:46 PM Referred By: Gorge Beard Confirmed By:KAY ELMORE MD
--- NOTE | 2017-08-15 13:04 | EKG ---
Test Reason : Blood Pressure : / mmHG Vent. Rate : 081 BPM Atrial Rate : 073 BPM P-R Int : 000 ms QRS Dur : 150 ms QT Int : 456 ms P-R-T Axes : 000 028 036 degrees QTc Int : 529 ms ATRIAL FIBRILLATION WITH PREMATURE VENTRICULAR OR ABERRANTLY CONDUCTED COMPLEXES RIGHT BUNDLE BRANCH BLOCK ABNORMAL ECG WHEN COMPARED WITH ECG OF 15-AUG-2017 08:29, NO SIGNIFICANT CHANGE WAS FOUND Confirmed by KAY ELMORE MD ([id number]) on 08/15/2017 1:04:13 PM Referred By: Gorge Beard Confirmed By:KAY ELMORE MD
== END 2017-08-15 11:00 | disposition home or self-care (01) ==
LOC: JASU-ENDO 06:38
PROVIDERS: ATTEND Internal Medicine Cardiovascular Disease
PROC: 5A2204Z Restoration of Cardiac Rhythm, Single (ICD-10-PCS; principal; 2017-08-15 08:30)
DX: I48.2 Chronic atrial fibrillation (principal)
CPT/HCPCS: 92960; 93005; 93010

== ENCOUNTER 2019-10-23 10:06 | Emergency (ER) | payer OTHER ==
[2019-10-23 10:19] VITALS: BMI 286.4
--- NOTE | 2019-10-23 10:55 | PDOC ---
History of Present Illness - General Chief Complaint: Cold Symptoms Stated Complaint: SORE THROAT/ FEVER Time Seen by Provider: 10/23/19 10:50 - History of Present Illness Initial Comments: 10/23/19 12:11 The patient is a 79 year old male with a history of afib, htn who presents for evaluation of sore throat and fever. The patient reports a several day history of sore throat and noted a subjective fever yesterday evening that resolved with medication at home. He states that he called his primary care provider who sent him a prescription for antibiotics and told him to present to the ED for further evaluation. He otherwise denies headache, cough, sick contacts, recent travel, SOB, chest pain, nausea, vomiting, abdominal pain, or changes with urination or bowel movements. Past History - Past Medical History Allergies/Adverse Reactions: Allergies Allergy/AdvReac Type Severity Reaction Status Date / Time shrimp Allergy Severe Verified 07/10/17 12:41 amiodarone Allergy Verified 08/14/17 14:42 Home Medications: Ambulatory Orders Apixaban [Eliquis] 5 mg PO BID 03/19/16 Carvedilol [Coreg -] 25 mg PO BID #60 tablet 03/22/16 Amlodipine Besylate [Norvasc -] 10 mg PO DAILY 08/14/17 Atorvastatin Ca [Lipitor] 10 mg PO HS 08/14/17 Bicalutamide [Casodex] 50 mg PO DAILY 08/14/17 Potassium Chloride 10 meq PO BID 08/14/17 Amoxicillin - [Amoxicillin 500mg Capsule -] 500 mg PO BID #14 capsule 10/23/19 Anemia: No Asthma: No Cancer: No Cardiac Disorders: Yes (A-Fib, Aortic Valve Replacement 02/2016.) CVA: No COPD: No CHF: No Dementia: No Diabetes: No GI Disorders: No Disorders: No HTN: Yes Hypercholesterolemia: No Liver Disease: No Seizures: No Thyroid Disease: No - Surgical History Abdominal Surgery: Yes (ing.hernia) Appendectomy: No Cardiac Surgery: Yes (Heart Valve Replacement 02/2016) Cholecystectomy: No Lung Surgery: No Neurologic Surgery: No Orthopedic Surgery: No - Immunization History Immunization Up to Date: Yes - Psycho Social/Smoking Cessation Hx Smoking Status: No Smoking History: Never smoked Have you smoked in the past 12 months: No Number of Cigarettes Smoked Daily: 0 Information on smoking cessation initiated: No Hx Alcohol Use: No Drug/Substance Use Hx: No Substance Use Type: None Hx Substance Use Treatment: No Review of Systems - Review of Systems Comments:: 10/23/19 12:14 Constitutional: Subjective Fever, No chills, fatigue, malaise HEENT: Sore throat. No Rhinorrhea, nasal congestion, visual changes Cardiovascular: No chest pain, syncope, palpitations, lightheadedness Respiratory: No Cough, SOB, Hemoptysis, Gastrointestinal: No Abdominal pain, Nausea, Vomiting, Constipation, Diarrhea, Melena Genitourinary: No Dysuria, Frequency, Urgency, Hesitancy, Hematuria, Flank pain Musculoskeletal: No Myalgia, arthralgia Skin: No rashes, itching, bruising, pallor Neurologic: No Headache, Dizziness, Numbness, Weakness, or Tingling Psychiatric: No Hallucinations. No SI or HI *Physical Exam - Vital Signs Last Vital Signs Temp Pulse Resp BP Pulse Ox 98.3 F 72 17 102/67 100 10/23/19 10:16 10/23/19 10:16 10/23/19 10:16 10/23/19 10:16 10/23/19 10:16 - Physical Exam 10/23/19 12:15 General Appearance: Nourished. No Apparent Distress HEENT: Mild Pharyngeal Erythema, No Tonsillar Exudate, Tonsillar Erythema Neck: No Cervical Lymphadenopathy Respiratory/Chest: Lungs Clear, Normal Breath Sounds. No Crackles, Rales, Rhonchi, Wheezing Cardiovascular: Regular Rhythm, Regular Rate. No Gallops, Rubs Gastrointestinal/Abdominal: Normal Bowel Sounds, Soft. No Guarding, Rebound, Tenderness Musculoskeletal: No CVA Tenderness Extremity: Normal Capillary Refill Integumentary: Normal Color, Dry, Warm Neurologic: Fully Oriented, Alert, Normal Mood/Affect, Normal Response, 10/23/19 12:15 Medical Decision Making - Medical Decision Making 10/23/19 12:15 The patient is a 79 year old male with a history of afib, htn who presents for evaluation of sore throat and fever. Given the patient's history and physical exam, we will obtain a rapid strep to evaluate further. We will continue to monitor and reassess while here in the ED. 10/23/19 13:02 Rapid strep is positive. We are comfortable discharging the patient home in stable condition on Amoxacillin. Patient and family made aware of impression and plan, return precautions discussed including but not limited to worsening pain or symptoms, fevers, or signs of infection, chest pain, respiratory distress, inability to tolerate oral intake, dehydration, syncope, or neurologic changes. The patient is to follow up with PMD as recommended within 1 week, follow up information provided and the patient will call for an appointment. The patient is to take medications as instructed for duration of time and continue with supportive care, avoid triggers and precipitants. Patient is safe for outpatient follow-up. Discharge - Discharge Information Problems reviewed: Yes Clinical Impression/Diagnosis: Strep pharyngitis Condition: Stable Disposition: HOME - Additional Discharge Information Prescriptions: Amoxicillin - [Amoxicillin 500mg Capsule -] 500 mg PO BID #14 capsule - Follow up/Referral Referrals: Eusebio Sebastian MD [Primary Care Provider] - - Patient Discharge Instructions Patient Printed Discharge Instructions: DI for Strep Throat Additional Instructions: 1) Please follow-up with your primary care doctor in the next 2-3 days. Please call tomorrow to schedule a follow up appointment. If you cannot follow up with your doctor within 1 week please return to the Emergency Department for any urgent issues. 2) Your laboratory were positive for Strep Throat here in the ER. 3) If you have any worsening of symptoms or any other concerns, please return to the ER immediately. Return if worsening symptoms including fevers, headache, vomiting, visual or hearing disturbances, abdominal pain, chest pain, shortness of breath, syncope, dehydration, inability to take things by mouth/vomiting, altered mental status, or worsening concerning symptoms. 4) Please continue taking your home medications as directed. Your medications on discharge include Amoxacillin . Side effects may include upset stomach, abdominal pain, vomiting, or diarrhea. Do not drink alcohol with your medications. 1) Por favor, maryan un seguimiento con martinez mdico de atencin primaria en los prximos 2-3 roberson. Por favor llame maana para programar janusz margy de seguimiento. Si no puede hacer un seguimiento con martinez mdico dentro de 1 semana, por favor regrese al Departamento de Emergencias para cualquier problema urgente. 2) Martinez laboratorio fue positivo para Strep Throat aqu en Urgencias. 3) Si tiene algn empeoramiento de los sntomas o cualquier otra preocupacin, por favor regrese a la urgencia inmediatamente. Regrese si empeora los sntomas incluyendo fiebre, dolor de sophia, vmitos, trastornos visuales o auditivos, dolor abdominal, dolor en el pecho, dificultad para respirar, sncope, deshidratacin, incapacidad para bridgette cosas por boca/vmitos, alteracin del estado mental o empeoramiento de los sntomas. 4) Por favor, contine tomando maryellen medicamentos caseros segn las instrucciones. Maryellen medicamentos para el dora incluyen Amoxacilina. Los efectos secundarios pueden incluir malestar estomacal, dolor abdominal, vmitos o diarrea. No ana lilia alcohol con maryellen medicamentos. Print Language: BERMUDIAN - Post Discharge Activity
--- NOTE | 2019-10-23 12:36 | PDOC ---
Documentation entered by Shirley Merritt SCRIBE, acting as scribe for Phi Nicole MD. Phi Nicole MD: This documentation has been prepared by the Shaina burns Nirvannie, SCRIBE, under my direction and personally reviewed by me in its entirety. I confirm that the documentation accurately reflects all work, treatment, procedures, and medical decision making performed by me. Attending Attestation - Resident Resident Name: Gerson Davis - ED Attending Attestation I have performed the following: I have examined & evaluated the patient, The case was reviewed & discussed with the resident, I agree w/resident's findings & plan, Exceptions are as noted - HPI HPI: 10/23/19 12:24 CC: Sore throat, subjective fever HPI: The patient is a 79 year old male, with a significant past medical history of Afib and HTN, who presents to the emergency department with sore throat and subjective fever. Patient notes to have spoken to PCP who prescribes him antibiotics. He denies any recent chest pain or shortness of breath. Allergies: Shrimp, Amiodarone - Physicial Exam PE: 10/23/19 12:36 Vitals: Triage Vital signs reviewed General Appearance: No acute distress, well nourished well developed, Head: Atraumatic, Throat: Posterior oropharynx with erythema, mucous membranes moist, Neck: Supple; no Nucal rigidity Chest Wall: Nontender Cardiac: Regular rate and rhythym, no murmurs, no rubs, no gallops, Lungs: Clear to auscultation bilateral, good air movement bilaterally, Abdomen: Soft, non distended, normal bowel sounds, non tender to palpation Extremities: Full range of motion to all extremities, no cyanosis, clubbing, or edema Psych: Normal mood, normal affect - Medical Decision Making 10/23/19 12:25 79 year old male, with a significant past medical history of Afib and HTN, who presents to the emergency department with sore throat and subjective fever. Plan is: Throat Culture Reassess 10/23/19 12:36 Well-appearing no apparent distress with throat pain x2 days 10/23/19 16:09 Rapid strep positive we will treat with amoxicillin with PCP follow-up Findings, the need for follow-up and strict return instructions discussed with patient.
[2019-10-23 13:25] VITALS: BP 116/69; PULSE 63; TEMP 98.1
== END 2019-10-23 13:25 | disposition home or self-care (01) ==
LOC: JER 10:06
DX: J02.0 Streptococcal pharyngitis (principal); Z88.8 Allergy status to other drugs, medicaments and biological substances; Z91.013 Allergy to seafood; I48.91 Unspecified atrial fibrillation; Z95.2 Presence of prosthetic heart valve; I10 Essential (primary) hypertension
CPT/HCPCS: 87880; 99282-25

== ENCOUNTER 2022-04-02 20:09 | Inpatient (IN) | payer OTHER ==
[2022-04-02 21:55] LABS: HEMATOCRIT 38.2 % (35.4-49); HEMOGLOBIN 13.7 GM/dL (11.7-16.9); MCH 33.8 pg (25.7-33.7); MCHC 35.8 g/dl (32.0-35.9); MEAN CELL VOLUME 94.5 fl (80-96); MEAN PLT VOLUME 9.1 fl (7.5-11.1); PLATELET COUNT 119 10^3/uL (134-434); RBC 4.04 M/mm3 (4.00-5.60); RDW 14.1 % (11.9-15.9); WHITE BLOOD COUNT 7.2 K/mm3 (4.0-10.0)
[2022-04-02 22:04] LABS: INR 2.13 (0.83-1.09); PROTHROMBIN TIME (PATIENT) 24.7 SEC (9.7-13.0)
[2022-04-02 22:24] LABS: CHLORIDE 100 mmol/L (98-107); SODIUM 137 mmol/L (136-145)
[2022-04-02 22:27] LABS: CALCIUM 8.2 mg/dL (8.5-10.1)
[2022-04-02 22:28] LABS: ALBUMIN 3.7 g/dl (3.4-5.0); CO2 29 mmol/L (21-32); GLUCOSE,RANDOM 121 mg/dL (74-106)
[2022-04-02 22:31] LABS: ANISOCYTOSIS 0; CREATININE 1.7 mg/dL (0.55-1.3); HELMET CELLS 0; HOWELL-JOLLY BODIES 0; MACROCYTOSIS 0; OVALOCYTE 0; ROULEAU 0; SGOT/AST 24 U/L (15-37); SGPT/ALT 27 U/L (13-61); SICKELED CELLS 0; TARGET CELLS 0; TEAR DROP CELLS 0; TOXIC GRANULATION 0
[2022-04-02 22:32] LABS: BILIRUBIN,TOTAL 1.3 mg/dL (0.2-1); TOT PROT 6.8 g/dl (6.4-8.2)
[2022-04-02 22:34] LABS: ALK PHOS 164 U/L (45-117)
[2022-04-02 22:35] LABS: N-TERMINAL BNP 6592.4 pg/ml (5-450)
[2022-04-02 22:39] LABS: ANION GAP 9 MMOL/L (8-16)
[2022-04-02] MEDS ORDERED: POTASSIUM CHLORIDE ORAL LIQUID 20 MEQ/15 ML PO ONE (22:45)
[2022-04-02] MEDS ORDERED: KCL 10 MEQ IVPB 10 MEQ/100 ML INFUS.BAG IVPB SCH (22:45)
[2022-04-02] MEDS ORDERED: ACETAMINOPHEN 1000 MG/100 ML BAG IVPB ONE (22:52)
[2022-04-02] MEDS ORDERED: POTASSIUM CHLORIDE TABS 20 MEQ TABLET.ER (FP) PO ONE ×2 (22:52→23:46)
[2022-04-02] MEDS ORDERED: SODIUM CHLORIDE 0.9% 500 ML INFUS.BAG IV ONE (22:52)
[2022-04-02] MEDS ORDERED: ACETAMINOPHEN INJECTION 100 ML IVPB ONE (23:46)
[2022-04-02] MEDS ORDERED: KCL 10 MEQ IVPB 10 MEQ/100 ML INFUS.BAG IVPB ONE (23:46)
[2022-04-03 03:14] LABS: EPI CELLS 10 /uL (0-25.1); HYALINE CASTS 1 /uL (0-3.1); URINE APPEARANCE CLEAR; URINE BACTERIA 5 /uL (0-1359); URINE BILIRUBIN 1+ (NEGATIVE); URINE COLOR DK YELLOW; URINE GLUCOSE (UA) NEGATIVE (NEGATIVE); URINE KETONE TRACE (NEGATIVE); URINE LEUK ESTERASE NEGATIVE (NEGATIVE); URINE NITRITE NEGATIVE (NEGATIVE); URINE PROTEIN 1+ (NEGATIVE); URINE RBC 24 /uL (0-23.9); URINE WBC 4 /uL (0-25.8)
[2022-04-03 03:21] LABS: CHLORIDE 98 mmol/L (98-107); SODIUM 137 mmol/L (136-145)
[2022-04-03 03:22] LABS: CALCIUM 7.6 mg/dL (8.5-10.1)
[2022-04-03 03:23] LABS: BLOOD UREA NITROGEN 14.2 mg/dL (7-18); CO2 27 mmol/L (21-32); GLUCOSE,RANDOM 111 mg/dL (74-106)
[2022-04-03 03:26] LABS: CREATININE 1.7 mg/dL (0.55-1.3)
[2022-04-03 03:53] LABS: ANION GAP 12 MMOL/L (8-16); LACTIC ACID 2.3 mmol/L (0.4-2.0)
[2022-04-03] MEDS: KCL 10 MEQ IVPB 10 MEQ/100 ML INFUS.BAG IVPB SCH ×6 (04:30→23:35)
[2022-04-03 07:07] LABS: BLOOD UREA NITROGEN 17.5 mg/dL (7-18); CALCIUM 7.8 mg/dL (8.5-10.1)
[2022-04-03 07:08] LABS: ALBUMIN 3.2 g/dl (3.4-5.0)
[2022-04-03 07:10] LABS: CREATININE 2.2 mg/dL (0.55-1.3)
[2022-04-03 07:12] LABS: TOT PROT 6.2 g/dl (6.4-8.2)
[2022-04-03] MEDS ORDERED: POTASSIUM CHLORIDE TABS 20 MEQ TABLET.ER (FP) PO ONE ×2 (10:12→10:31)
[2022-04-03] MEDS ORDERED: SODIUM CHLORIDE 0.9%/KCL 20 MEQ/1,000 ML INFUS.BAG IV SCH ×4 (10:15→18:28)
[2022-04-03] MEDS ORDERED: VANCOMYCIN 1 GM/200 ML PREMIX BAG IVPB ONE (10:49)
[2022-04-03 12:43] LABS: HEMATOCRIT 39.2 % (35.4-49); HEMOGLOBIN 13.6 GM/dL (11.7-16.9); MCH 33.2 pg (25.7-33.7); MCHC 34.7 g/dl (32.0-35.9); MEAN CELL VOLUME 95.7 fl (80-96); PLATELET COUNT 75 10^3/uL (134-434); RBC 4.09 M/mm3 (4.00-5.60); RDW 14.3 % (11.9-15.9); WHITE BLOOD COUNT 10.7 K/mm3 (4.0-10.0)
[2022-04-03 13:49] LABS: ANISOCYTOSIS 0; HELMET CELLS 0; HOWELL-JOLLY BODIES 0; MACROCYTOSIS 0; OVALOCYTE 0; ROULEAU 0; SICKELED CELLS 0; TARGET CELLS 0; TEAR DROP CELLS 0; TOXIC GRANULATION 0
[2022-04-03 17:30] LABS: ARTERIAL BLD GAS O2 SATURATION 96.8 % (95-98); ARTERIAL BLOOD GAS BASE EXCESS -2.6 mmol/L (-2-2); ARTERIAL BLOOD GAS PO2 82.9 mmHg (80-100); ARTERIAL BLOOD GAS pH 7.455 (7.350-7.450)
[2022-04-03] MEDS ORDERED: CEFTRIAXONE 2 GM in DEXTROSE 5%-WATER 2 GM/100 ML BAG IVPB SCH (17:30)
[2022-04-03 17:31] LABS: ALLENS TEST POSITIVE
[2022-04-03] MEDS ORDERED: PIPERACILLIN/TAZOB 3.375 GM 3.375 GM in DEXTROSE 5%-WATER - 50 ML IVPB SCH (18:00)
[2022-04-03] MEDS: ACETAMINOPHEN 1000 MG/100 ML BAG IVPB PRN (19:04)
[2022-04-03 20:00] LABS: HEMATOCRIT 36.5 % (35.4-49); HEMOGLOBIN 12.7 GM/dL (11.7-16.9); MCH 33.1 pg (25.7-33.7); MCHC 34.7 g/dl (32.0-35.9); MEAN CELL VOLUME 95.1 fl (80-96); MEAN PLT VOLUME 10.2 fl (7.5-11.1); PLATELET COUNT 56 10^3/uL (134-434); RBC 3.83 M/mm3 (4.00-5.60); RDW 14.4 % (11.9-15.9); WHITE BLOOD COUNT 8.3 K/mm3 (4.0-10.0)
[2022-04-03 20:26] LABS: CALCIUM 7.3 mg/dL (8.5-10.1)
[2022-04-03 20:27] LABS: ALBUMIN 3.1 g/dl (3.4-5.0); BLOOD UREA NITROGEN 32.4 mg/dL (7-18)
[2022-04-03 20:30] LABS: CREATININE 2.3 mg/dL (0.55-1.3)
[2022-04-03 20:32] LABS: BILIRUBIN,TOTAL 1.3 mg/dL (0.2-1)
[2022-04-03 20:33] LABS: ANISOCYTOSIS 2+; MACROCYTOSIS 0
[2022-04-03] MEDS ORDERED: LACTATED RINGERS SOLUTION 1000 ML INFUS.BAG IV ONE (20:55)
[2022-04-03 20:56] LABS: LACTIC ACID 4.2 mmol/L (0.4-2.0)
[2022-04-03] MEDS ORDERED: MAGNESIUM SULFATE IN WATER 2 GM/50 ML IVPB IVPB ONE (21:00)
[2022-04-03] MEDS: LACTATED RINGERS SOLUTION 1,000 ML/1,000 ML INFUS.BAG IV SCH (21:54)
[2022-04-03] MEDS: CHLORHEXIDINE GLUCONATE 4% CLEANSER FOR DECOLONIZATION TP SCH (21:55)
[2022-04-03] MEDS: MUPIROCIN 2% TOPICAL OINTMENT FOR DECOLONIZATION NS SCH (21:55)
[2022-04-03] MEDS: APIXABAN 5 MG TABLET PO SCH (21:56)
[2022-04-03] MEDS ORDERED: APIXABAN 5 MG TABLET PO SCH (22:00)
[2022-04-03 22:07] LABS: EPI CELLS 15 /uL (0-25.1); HYALINE CASTS 6 /uL (0-3.1); URINE APPEARANCE CLOUDY; URINE BACTERIA 1 /uL (0-1359); URINE BILIRUBIN NEGATIVE (NEGATIVE); URINE COLOR DK YELLOW; URINE GLUCOSE (UA) NEGATIVE (NEGATIVE); URINE KETONE NEGATIVE (NEGATIVE); URINE LEUK ESTERASE TRACE (NEGATIVE); URINE NITRITE NEGATIVE (NEGATIVE); URINE PROTEIN 2+ (NEGATIVE); URINE RBC 47 /uL (0-23.9); URINE UROBILINOGEN 0.2 mg/dL (0.2-1.0); URINE WBC 18 /uL (0-25.8)
[2022-04-03] MEDS: DEXMEDETOMIDINE IN 0.9 % NACL 400 MCG/100 ML VIAL IVPB SCH (22:23)
[2022-04-03 23:37] LABS: BILIRUBIN,DIRECT 0.7 mg/dL (0.0-0.2)
[2022-04-04] MEDS ORDERED: LACTATED RINGERS SOLUTION 1000 ML INFUS.BAG IV ONE (07:28)
[2022-04-04 08:00] LABS: ALBUMIN 2.8 g/dl (3.4-5.0); BLOOD UREA NITROGEN 38.1 mg/dL (7-18); MAGNESIUM 1.9 mg/dL (1.8-2.4)
[2022-04-04 08:02] LABS: ALBUMIN 2.8 g/dl (3.4-5.0)
[2022-04-04 08:03] LABS: CREATININE 2.4 mg/dL (0.55-1.3); PHOSPHOROUS 3.9 mg/dL (2.5-4.9)
[2022-04-04 08:05] LABS: BILIRUBIN,DIRECT 0.7 mg/dL (0.0-0.2); BILIRUBIN,TOTAL 1.1 mg/dL (0.2-1); TOT PROT 5.4 g/dl (6.4-8.2)
[2022-04-04 08:07] LABS: BILIRUBIN,TOTAL 1.2 mg/dL (0.2-1); TOT PROT 5.4 g/dl (6.4-8.2)
[2022-04-04 08:10] LABS: HEMATOCRIT 32.6 % (35.4-49); HEMOGLOBIN 11.5 GM/dL (11.7-16.9); MCH 33.5 pg (25.7-33.7); MCHC 35.3 g/dl (32.0-35.9); MEAN CELL VOLUME 94.8 fl (80-96); MEAN PLT VOLUME 10.8 fl (7.5-11.1); PLATELET COUNT 38 10^3/uL (134-434); RBC 3.44 M/mm3 (4.00-5.60); RDW 14.3 % (11.9-15.9); WHITE BLOOD COUNT 8.7 K/mm3 (4.0-10.0)
[2022-04-04] MEDS: LACTATED RINGERS SOLUTION 1,000 ML/1,000 ML INFUS.BAG IV SCH (08:12)
[2022-04-04] MEDS ORDERED: LACTATED RINGERS SOLUTION 1,000 ML/1,000 ML INFUS.BAG IV SCH (08:18)
[2022-04-04 08:40] LABS: LACTIC ACID 5.1 mmol/L (0.4-2.0)
[2022-04-04] MEDS: KCL 10 MEQ IVPB 10 MEQ/100 ML INFUS.BAG IVPB SCH ×3 (09:00→10:43)
[2022-04-04] MEDS: MUPIROCIN 2% TOPICAL OINTMENT FOR DECOLONIZATION NS SCH ×2 (09:01→21:26)
[2022-04-04] MEDS ORDERED: VANCOMYCIN/WATER FOR INJ (PEG) 1,000 MG/200 ML BAG IVPB ONE (09:28)
[2022-04-04] MEDS ORDERED: CEFTRIAXONE 2 GM in DEXTROSE 5%-WATER 2 GM/100 ML BAG IVPB SCH (10:00)
[2022-04-04 10:10] LABS: ANISOCYTOSIS 0; HELMET CELLS 0; HOWELL-JOLLY BODIES 0; MACROCYTOSIS 0; OVALOCYTE 0; ROULEAU 0; SICKELED CELLS 0; TARGET CELLS 0; TEAR DROP CELLS 0; TOXIC GRANULATION 0
[2022-04-04] MEDS ORDERED: ALBUTEROL SO4 0.083% IH SOL 2.5 MG/3 ML VIAL.NEB. NEB ONE (12:43)
[2022-04-04] MEDS: ACETAMINOPHEN 1000 MG/100 ML BAG IVPB PRN (14:19)
[2022-04-04 16:26] LABS: BASO % 0.1 % (0-2.0); EOS % 5.9 % (0-4.5); HEMATOCRIT 34.9 % (35.4-49); HEMOGLOBIN 12.3 GM/dL (11.7-16.9); LYMPH % 3.4 % (8-40); MCH 33.3 pg (25.7-33.7); MCHC 35.3 g/dl (32.0-35.9); MEAN CELL VOLUME 94.1 fl (80-96); MEAN PLT VOLUME 11.1 fl (7.5-11.1); MONO % 2.6 % (3.8-10.2); PLATELET COUNT 38 10^3/uL (134-434); RDW 14.6 % (11.9-15.9); WHITE BLOOD COUNT 6.9 K/mm3 (4.0-10.0)
[2022-04-04 16:29] LABS: INR 1.94 (0.83-1.09); PROTHROMBIN TIME (PATIENT) 22.5 SEC (9.7-13.0)
[2022-04-04 16:31] LABS: ACTIVATED PTT 30.3 SECONDS (25.2-36.5)
[2022-04-04 16:51] LABS: LACTIC ACID 4.8 mmol/L (0.4-2.0); N-TERMINAL BNP 19824.2 pg/ml (5-450)
[2022-04-04] MEDS: PIPERACILLIN/TAZOB 2.25 GM 2.25 GM in DEXTROSE 5%-WATER - 50 ML IVPB SCH ×2 (19:04→21:26)
[2022-04-04] MEDS: DEXMEDETOMIDINE IN 0.9 % NACL 400 MCG/100 ML VIAL IVPB SCH (20:53)
[2022-04-04] MEDS: CHLORHEXIDINE GLUCONATE 4% CLEANSER FOR DECOLONIZATION TP SCH (21:26)
[2022-04-04] MEDS ORDERED: CEFAZOLIN SODIUM 2 GM in DEXTROSE 5%-WATER 100 ML IVPB SCH (22:00)
[2022-04-05] MEDS: PIPERACILLIN/TAZOB 2.25 GM 2.25 GM in DEXTROSE 5%-WATER - 50 ML IVPB SCH (02:52)
[2022-04-05 08:09] LABS: INR 1.58 (0.83-1.09); PROTHROMBIN TIME (PATIENT) 18.2 SEC (9.7-13.0)
[2022-04-05 08:12] LABS: ACTIVATED PTT 28.2 SECONDS (25.2-36.5)
[2022-04-05 08:40] LABS: ALBUMIN 2.8 g/dl (3.4-5.0); CALCIUM 7.3 mg/dL (8.5-10.1); MAGNESIUM 2.3 mg/dL (1.8-2.4)
[2022-04-05 08:43] LABS: PHOSPHOROUS 4.5 mg/dL (2.5-4.9)
[2022-04-05 08:44] LABS: TOT PROT 5.7 g/dl (6.4-8.2)
[2022-04-05 08:45] LABS: CREATININE 3.2 mg/dL (0.55-1.3)
[2022-04-05 08:50] LABS: BASO % 0.3 % (0-2.0); EOS % 3.7 % (0-4.5); HEMATOCRIT 34.8 % (35.4-49); HEMOGLOBIN 12.2 GM/dL (11.7-16.9); LYMPH % 4.4 % (8-40); MCH 33.3 pg (25.7-33.7); MEAN PLT VOLUME 12.2 fl (7.5-11.1); MONO % 3.6 % (3.8-10.2); RBC 3.66 M/mm3 (4.00-5.60); RDW 14.8 % (11.9-15.9); WHITE BLOOD COUNT 9.5 K/mm3 (4.0-10.0)
[2022-04-05] MEDS ORDERED: AZTREONAM 2 GM in DEXTROSE 5%-WATER 100 ML IVPB ONE (09:17)
[2022-04-05 09:50] LABS: PLATELET COUNT 34 10^3/uL (134-434)
[2022-04-05] MEDS ORDERED: NAFCILLIN - 2 GM in DEXTROSE 5%-WATER - 100 ML IVPB SCH (10:00)
[2022-04-05] MEDS: MUPIROCIN 2% TOPICAL OINTMENT FOR DECOLONIZATION NS SCH ×2 (10:05→21:02)
[2022-04-05 10:28] LABS: ANISOCYTOSIS 0; MACROCYTOSIS 1+
[2022-04-05] MEDS ORDERED: NAFCILLIN - 2 GM in DEXTROSE 5%-WATER 100 ML IVPB ONE (10:45)
[2022-04-05] MEDS ORDERED: NAFCILLIN - 2 GM in DEXTROSE 5%-WATER 100 ML IVPB SCH (10:45)
[2022-04-05] MEDS ORDERED: AZTREONAM 1 GM in DEXTROSE 5%-WATER - 50 ML IVPB SCH ×3 (13:30→20:00)
[2022-04-05] MEDS: NAFCILLIN - 2 GM in DEXTROSE 5%-WATER 100 ML IVPB SCH ×3 (14:08→21:02)
[2022-04-05 15:33] LABS: BLOOD UREA NITROGEN 66.3 mg/dL (7-18)
[2022-04-05] MEDS: CHLORHEXIDINE GLUCONATE 4% CLEANSER FOR DECOLONIZATION TP SCH (21:02)
[2022-04-05] MEDS: AZTREONAM 1 GM in DEXTROSE 5%-WATER - 50 ML IVPB SCH (21:02)
[2022-04-06] MEDS: NAFCILLIN - 2 GM in DEXTROSE 5%-WATER 100 ML IVPB SCH ×6 (01:21→22:20)
[2022-04-06 07:52] LABS: INR 1.28 (0.83-1.09); PROTHROMBIN TIME (PATIENT) 14.7 SEC (9.7-13.0)
[2022-04-06 07:54] LABS: ACTIVATED PTT 25.6 SECONDS (25.2-36.5); HEMOGLOBIN 12.2 GM/dL (11.7-16.9); MEAN CELL VOLUME 94.3 fl (80-96); MEAN PLT VOLUME 11.2 fl (7.5-11.1); RBC 3.71 M/mm3 (4.00-5.60); RDW 14.8 % (11.9-15.9); WHITE BLOOD COUNT 9.6 K/mm3 (4.0-10.0)
[2022-04-06 08:09] LABS: CHLORIDE 104 mmol/L (98-107); SODIUM 139 mmol/L (136-145)
[2022-04-06 08:15] LABS: ALBUMIN 2.4 g/dl (3.4-5.0); BLOOD UREA NITROGEN 72.5 mg/dL (7-18); CO2 21 mmol/L (21-32); GLUCOSE,RANDOM 101 mg/dL (74-106); MAGNESIUM 2.4 mg/dL (1.8-2.4)
[2022-04-06 08:18] LABS: CREATININE 2.6 mg/dL (0.55-1.3); SGOT/AST 197 U/L (15-37); SGPT/ALT 193 U/L (13-61)
[2022-04-06 08:19] LABS: PHOSPHOROUS 2.5 mg/dL (2.5-4.9)
[2022-04-06 08:20] LABS: BILIRUBIN,TOTAL 2.5 mg/dL (0.2-1); TOT PROT 5.2 g/dl (6.4-8.2)
[2022-04-06 08:21] LABS: ALK PHOS 69 U/L (45-117)
[2022-04-06] MEDS ORDERED: ACETAMINOPHEN 1000 MG/100 ML BAG IVPB ONE (08:21)
[2022-04-06] MEDS ORDERED: oxyCODONE HCL 5 MG TABLET PO ONE (08:22)
[2022-04-06 08:24] LABS: LDH 354 U/L (87-246)
[2022-04-06 08:29] LABS: ANION GAP 14 MMOL/L (8-16)
[2022-04-06 08:31] LABS: PLATELET COUNT 35 10^3/uL (134-434)
[2022-04-06 09:02] LABS: ANISOCYTOSIS 0; MACROCYTOSIS 1+; OVALOCYTE 1+
[2022-04-06] MEDS: AZTREONAM 1 GM in DEXTROSE 5%-WATER - 50 ML IVPB SCH ×2 (10:55→22:28)
[2022-04-06] MEDS: MUPIROCIN 2% TOPICAL OINTMENT FOR DECOLONIZATION NS SCH ×2 (10:55→22:22)
[2022-04-06] MEDS: KCL 10 MEQ IVPB 10 MEQ/100 ML INFUS.BAG IVPB SCH ×3 (15:39→18:13)
[2022-04-06] MEDS ORDERED: POTASSIUM CHLORIDE TABS 20 MEQ TABLET.ER (FP) PO ONE ×2 (16:19→22:00)
[2022-04-06 18:09] LABS: CHLORIDE 102 mmol/L (98-107); SODIUM 139 mmol/L (136-145)
[2022-04-06 18:11] LABS: BLOOD UREA NITROGEN 63.2 mg/dL (7-18); CALCIUM 7.5 mg/dL (8.5-10.1); CO2 22 mmol/L (21-32); GLUCOSE,RANDOM 106 mg/dL (74-106)
[2022-04-06 18:14] LABS: CREATININE 2.2 mg/dL (0.55-1.3)
[2022-04-06 18:34] LABS: ANION GAP 14 MMOL/L (8-16)
[2022-04-06] MEDS: CHLORHEXIDINE GLUCONATE 4% CLEANSER FOR DECOLONIZATION TP SCH (22:23)
[2022-04-07] MEDS ORDERED: POTASSIUM CHLORIDE TABS 20 MEQ TABLET.ER (FP) PO ONE ×4 (02:06→20:00)
[2022-04-07] MEDS: NAFCILLIN - 2 GM in DEXTROSE 5%-WATER 100 ML IVPB SCH ×6 (02:43→21:20)
[2022-04-07 07:17] LABS: HEMATOCRIT 35.4 % (35.4-49); HEMOGLOBIN 12.1 GM/dL (11.7-16.9); MCH 32.7 pg (25.7-33.7); MCHC 34.3 g/dl (32.0-35.9); MEAN CELL VOLUME 95.3 fl (80-96); MEAN PLT VOLUME 10.3 fl (7.5-11.1); PLATELET COUNT 51 10^3/uL (134-434); RBC 3.72 M/mm3 (4.00-5.60); RDW 15.7 % (11.9-15.9); WHITE BLOOD COUNT 15.3 K/mm3 (4.0-10.0)
[2022-04-07 07:24] LABS: INR 1.28 (0.83-1.09); PROTHROMBIN TIME (PATIENT) 14.8 SEC (9.7-13.0)
[2022-04-07 07:27] LABS: ACTIVATED PTT 25.9 SECONDS (25.2-36.5)
[2022-04-07 07:35] LABS: CALCIUM 7.5 mg/dL (8.5-10.1)
[2022-04-07 07:36] LABS: ALBUMIN 2.4 g/dl (3.4-5.0); BLOOD UREA NITROGEN 59.9 mg/dL (7-18); MAGNESIUM 2.4 mg/dL (1.8-2.4)
[2022-04-07 07:39] LABS: CREATININE 1.8 mg/dL (0.55-1.3); PHOSPHOROUS 2.4 mg/dL (2.5-4.9)
[2022-04-07 07:40] LABS: TOT PROT 5.3 g/dl (6.4-8.2)
[2022-04-07 07:44] LABS: N-TERMINAL BNP 15820.8 pg/ml (5-450)
[2022-04-07] MEDS: MUPIROCIN 2% TOPICAL OINTMENT FOR DECOLONIZATION NS SCH ×2 (10:13→21:20)
[2022-04-07 10:33] LABS: ANISOCYTOSIS 0; HELMET CELLS 0; HOWELL-JOLLY BODIES 0; MACROCYTOSIS 0; OVALOCYTE 0; ROULEAU 0; SICKELED CELLS 0; TARGET CELLS 0; TEAR DROP CELLS 0; TOXIC GRANULATION 0
[2022-04-07] MEDS ORDERED: IBUPROFEN 400 MG TABLET (FP) PO ONE (11:46)
[2022-04-07] MEDS: NAPH,MB-DB/K PH,MBDB POWDER PACKET PO SCH ×2 (12:12→21:15)
[2022-04-07] MEDS: ERTAPENEM SODIUM 1 GM in SODIUM CHLORIDE 50 ML IVPB SCH (12:36)
[2022-04-07] MEDS: CHLORHEXIDINE GLUCONATE 4% CLEANSER FOR DECOLONIZATION TP SCH (21:20)
[2022-04-08] MEDS: NAFCILLIN - 2 GM in DEXTROSE 5%-WATER 100 ML IVPB SCH ×6 (01:15→22:06)
[2022-04-08 07:24] LABS: HEMATOCRIT 38.4 % (35.4-49); HEMOGLOBIN 13.1 GM/dL (11.7-16.9); MCH 32.5 pg (25.7-33.7); MEAN CELL VOLUME 95.5 fl (80-96); PLATELET COUNT 84 10^3/uL (134-434); RBC 4.02 M/mm3 (4.00-5.60); RDW 15.6 % (11.9-15.9); WHITE BLOOD COUNT 18.8 K/mm3 (4.0-10.0)
[2022-04-08 07:53] LABS: ALBUMIN 2.3 g/dl (3.4-5.0); CALCIUM 7.5 mg/dL (8.5-10.1)
[2022-04-08 07:54] LABS: BLOOD UREA NITROGEN 52.8 mg/dL (7-18); MAGNESIUM 2.4 mg/dL (1.8-2.4)
[2022-04-08 07:57] LABS: CREATININE 1.5 mg/dL (0.55-1.3); PHOSPHOROUS 2.4 mg/dL (2.5-4.9)
[2022-04-08 07:58] LABS: BILIRUBIN,TOTAL 3.7 mg/dL (0.2-1); TOT PROT 5.2 g/dl (6.4-8.2)
[2022-04-08 08:46] LABS: ANISOCYTOSIS 0; HELMET CELLS 0; HOWELL-JOLLY BODIES 0; MACROCYTOSIS 0; OVALOCYTE 0; ROULEAU 0; SICKELED CELLS 0; TARGET CELLS 0; TEAR DROP CELLS 0; TOXIC GRANULATION 0
[2022-04-08] MEDS: NAPH,MB-DB/K PH,MBDB POWDER PACKET PO SCH (11:06)
[2022-04-08] MEDS: MUPIROCIN 2% TOPICAL OINTMENT FOR DECOLONIZATION NS SCH (11:06)
[2022-04-08] MEDS: ERTAPENEM SODIUM 1 GM in SODIUM CHLORIDE 50 ML IVPB SCH (11:07)
[2022-04-08 11:28] VITALS: BMI 26.8
[2022-04-08] MEDS ORDERED: PANTOPRAZOLE SODIUM 40 MG VIAL IVPUSH ONE ×2 (19:28→22:15)
[2022-04-08 21:57] LABS: HEMATOCRIT 35.9 % (35.4-49); HEMOGLOBIN 12.4 GM/dL (11.7-16.9); MCH 32.7 pg (25.7-33.7); MCHC 34.4 g/dl (32.0-35.9); MEAN PLT VOLUME 10.2 fl (7.5-11.1); PLATELET COUNT 125 10^3/uL (134-434); RBC 3.78 M/mm3 (4.00-5.60); RDW 15.8 % (11.9-15.9); WHITE BLOOD COUNT 20.7 K/mm3 (4.0-10.0)
[2022-04-08] MEDS: CHLORHEXIDINE GLUCONATE 4% CLEANSER FOR DECOLONIZATION TP SCH (22:06)
[2022-04-08] MEDS: APIXABAN 5 MG TABLET PO SCH (22:06)
[2022-04-08 23:27] LABS: ANISOCYTOSIS 0; MACROCYTOSIS 0; OVALOCYTE 1+; TEAR DROP CELLS 1+; TOXIC GRANULATION 1+
[2022-04-09] MEDS: NAFCILLIN - 2 GM in DEXTROSE 5%-WATER 100 ML IVPB SCH ×6 (01:56→21:54)
[2022-04-09 08:35] LABS: HEMATOCRIT 37.1 % (35.4-49); HEMOGLOBIN 12.4 GM/dL (11.7-16.9); MCHC 33.3 g/dl (32.0-35.9); MEAN PLT VOLUME 10.6 fl (7.5-11.1); PLATELET COUNT 146 10^3/uL (134-434); RBC 3.86 M/mm3 (4.00-5.60); RDW 15.6 % (11.9-15.9); WHITE BLOOD COUNT 23.1 K/mm3 (4.0-10.0)
[2022-04-09 09:00] LABS: CALCIUM 7.6 mg/dL (8.5-10.1)
[2022-04-09 09:01] LABS: ALBUMIN 2.1 g/dl (3.4-5.0)
[2022-04-09 09:07] LABS: CREATININE 1.6 mg/dL (0.55-1.3)
[2022-04-09 09:28] LABS: ANISOCYTOSIS 1+; MACROCYTOSIS 1+
[2022-04-09] MEDS: APIXABAN 5 MG TABLET PO SCH ×2 (09:57→21:54)
[2022-04-09] MEDS: ERTAPENEM SODIUM 1 GM in SODIUM CHLORIDE 50 ML IVPB SCH (11:15)
[2022-04-09] MEDS: CARVEDILOL 3.125 MG TABLET (FP) PO SCH ×2 (11:23→21:53)
[2022-04-09] MEDS: KCL 10 MEQ IVPB 10 MEQ/100 ML INFUS.BAG IVPB SCH ×3 (11:46→16:11)
[2022-04-09] MEDS ORDERED: LIDOCAINE VISCOUS 2% ORAL/TOP 15 ML UNIT-DOSE CUP ONE (12:03)
[2022-04-09] MEDS ORDERED: POTASSIUM CHLORIDE TABS 20 MEQ TABLET.ER (FP) PO ONE ×2 (14:45→20:45)
[2022-04-09] MEDS: CHLORHEXIDINE GLUCONATE 4% CLEANSER FOR DECOLONIZATION TP SCH (21:54)
[2022-04-10] MEDS: NAFCILLIN - 2 GM in DEXTROSE 5%-WATER 100 ML IVPB SCH ×5 (01:18→22:52)
[2022-04-10] MEDS ORDERED: NAFCILLIN NA 2 GM VIAL IVPB ONE (05:31)
[2022-04-10 07:39] LABS: HEMATOCRIT 35.2 % (35.4-49); HEMOGLOBIN 11.8 GM/dL (11.7-16.9); MCHC 33.4 g/dl (32.0-35.9); MEAN CELL VOLUME 95.8 fl (80-96); MEAN PLT VOLUME 10.6 fl (7.5-11.1); PLATELET COUNT 203 10^3/uL (134-434); RBC 3.68 M/mm3 (4.00-5.60); RDW 16.1 % (11.9-15.9); WHITE BLOOD COUNT 26.8 K/mm3 (4.0-10.0)
[2022-04-10 07:58] LABS: CALCIUM 7.6 mg/dL (8.5-10.1); MAGNESIUM 2.1 mg/dL (1.8-2.4)
[2022-04-10 08:01] LABS: CREATININE 1.7 mg/dL (0.55-1.3)
[2022-04-10 08:03] LABS: BILIRUBIN,TOTAL 4.5 mg/dL (0.2-1); TOT PROT 5.2 g/dl (6.4-8.2)
[2022-04-10 09:18] LABS: ANISOCYTOSIS 0; HELMET CELLS 0; HOWELL-JOLLY BODIES 0; MACROCYTOSIS 0; OVALOCYTE 0; ROULEAU 0; SICKELED CELLS 0; TARGET CELLS 0; TEAR DROP CELLS 0; TOXIC GRANULATION 0
[2022-04-10] MEDS ORDERED: FUROSEMIDE 40 MG/4 ML INJECTABLE VIAL IVPUSH ONE (10:21)
[2022-04-10] MEDS: ERTAPENEM SODIUM 1 GM in SODIUM CHLORIDE 50 ML IVPB SCH (10:23)
[2022-04-10] MEDS: APIXABAN 5 MG TABLET PO SCH ×2 (10:24→22:57)
[2022-04-10] MEDS: CARVEDILOL 3.125 MG TABLET (FP) PO SCH ×2 (10:24→22:58)
[2022-04-10] MEDS ORDERED: PANTOPRAZOLE SODIUM 40 MG VIAL IVPUSH ONE (10:28)
[2022-04-10 12:02] LABS: ARTERIAL BLD GAS O2 SATURATION 96.3 % (95-98); ARTERIAL BLOOD GAS BASE EXCESS -5.6 mmol/L (-2-2); ARTERIAL BLOOD GAS pH 7.401 (7.350-7.450)
[2022-04-10 12:03] LABS: ALLENS TEST POSITIVE
[2022-04-10] MEDS: DEXAMETHASONE SOD PHOSPHATE 10 MG/1 ML VIAL IVPUSH SCH (17:10)
[2022-04-10] MEDS ORDERED: REMDESIVIR 200 MG in SODIUM CHLORIDE 250 ML IVPB ONE ×2 (18:00→20:00)
[2022-04-10] MEDS: CHLORHEXIDINE GLUCONATE 4% CLEANSER FOR DECOLONIZATION TP SCH (22:52)
[2022-04-11] MEDS: NAFCILLIN - 2 GM in DEXTROSE 5%-WATER 100 ML IVPB SCH ×6 (02:24→22:41)
[2022-04-11 08:21] LABS: HEMOGLOBIN 11.4 GM/dL (11.7-16.9); MCH 32.4 pg (25.7-33.7); MCHC 33.6 g/dl (32.0-35.9); MEAN CELL VOLUME 96.3 fl (80-96); MEAN PLT VOLUME 10.3 fl (7.5-11.1); PLATELET COUNT 214 10^3/uL (134-434); RBC 3.53 M/mm3 (4.00-5.60); RDW 16.4 % (11.9-15.9); WHITE BLOOD COUNT 24.6 K/mm3 (4.0-10.0)
[2022-04-11 08:51] LABS: ALBUMIN 1.7 g/dl (3.4-5.0); CALCIUM 7.3 mg/dL (8.5-10.1)
[2022-04-11 08:55] LABS: BILIRUBIN,TOTAL 2.9 mg/dL (0.2-1); CREATININE 1.9 mg/dL (0.55-1.3)
[2022-04-11 08:56] LABS: TOT PROT 5.1 g/dl (6.4-8.2)
[2022-04-11 09:25] LABS: ANISOCYTOSIS 0; HELMET CELLS 0; HOWELL-JOLLY BODIES 0; MACROCYTOSIS 0; OVALOCYTE 0; ROULEAU 0; SICKELED CELLS 0; TARGET CELLS 0; TEAR DROP CELLS 0; TOXIC GRANULATION 0
[2022-04-11] MEDS: REMDESIVIR 100 MG in SODIUM CHLORIDE 250 ML IVPB SCH (09:37)
[2022-04-11] MEDS: PANTOPRAZOLE SODIUM 40 MG VIAL IVPUSH SCH (09:40)
[2022-04-11] MEDS: CARVEDILOL 3.125 MG TABLET (FP) PO SCH ×2 (09:40→22:40)
[2022-04-11] MEDS: APIXABAN 5 MG TABLET PO SCH ×2 (09:41→22:40)
[2022-04-11] MEDS: DEXAMETHASONE SOD PHOSPHATE 10 MG/1 ML VIAL IVPUSH SCH (09:41)
[2022-04-11] MEDS: ERTAPENEM SODIUM 1 GM in SODIUM CHLORIDE 50 ML IVPB SCH (09:41)
[2022-04-11] MEDS: LACTOBACILLUS ACIDOPHILUS 1 TABLET PO SCH (14:46)
[2022-04-12] MEDS: NAFCILLIN - 2 GM in DEXTROSE 5%-WATER 100 ML IVPB SCH ×6 (02:40→21:50)
[2022-04-12] MEDS: DEXAMETHASONE SOD PHOSPHATE 10 MG/1 ML VIAL IVPUSH SCH (09:08)
[2022-04-12] MEDS: CARVEDILOL 3.125 MG TABLET (FP) PO SCH ×2 (09:08→21:50)
[2022-04-12] MEDS: APIXABAN 5 MG TABLET PO SCH ×2 (09:08→21:50)
[2022-04-12] MEDS: PANTOPRAZOLE SODIUM 40 MG VIAL IVPUSH SCH (09:08)
[2022-04-12 09:14] LABS: HEMATOCRIT 34.7 % (35.4-49); HEMOGLOBIN 11.9 GM/dL (11.7-16.9); MCH 32.8 pg (25.7-33.7); MCHC 34.3 g/dl (32.0-35.9); MEAN CELL VOLUME 95.5 fl (80-96); MEAN PLT VOLUME 9.7 fl (7.5-11.1); PLATELET COUNT 270 10^3/uL (134-434); RBC 3.63 M/mm3 (4.00-5.60); RDW 16.8 % (11.9-15.9); WHITE BLOOD COUNT 21.2 K/mm3 (4.0-10.0)
[2022-04-12 09:36] LABS: CHLORIDE 108 mmol/L (98-107); SODIUM 141 mmol/L (136-145)
[2022-04-12 09:46] LABS: ALBUMIN 1.8 g/dl (3.4-5.0); CALCIUM 7.6 mg/dL (8.5-10.1); CO2 22 mmol/L (21-32); GLUCOSE,RANDOM 152 mg/dL (74-106)
[2022-04-12 09:47] LABS: BLOOD UREA NITROGEN 45.8 mg/dL (7-18)
[2022-04-12 09:50] LABS: CREATININE 1.7 mg/dL (0.55-1.3); SGOT/AST 31 U/L (15-37)
[2022-04-12 09:51] LABS: BILIRUBIN,TOTAL 3.3 mg/dL (0.2-1); SGPT/ALT 40 U/L (13-61)
[2022-04-12 09:52] LABS: ALK PHOS 92 U/L (45-117)
[2022-04-12 10:09] LABS: LDH 324 U/L (87-246)
[2022-04-12 10:10] LABS: ANION GAP 11 MMOL/L (8-16)
[2022-04-12] MEDS ORDERED: POTASSIUM CHLORIDE TABS 20 MEQ TABLET.ER (FP) PO ONE ×2 (10:11→22:00)
[2022-04-12] MEDS: LACTOBACILLUS ACIDOPHILUS 1 TABLET PO SCH (10:23)
[2022-04-12] MEDS: ERTAPENEM SODIUM 1 GM in SODIUM CHLORIDE 50 ML IVPB SCH (10:23)
[2022-04-12 10:45] LABS: ANISOCYTOSIS 0; HELMET CELLS 0; HOWELL-JOLLY BODIES 0; MACROCYTOSIS 0; OVALOCYTE 0; ROULEAU 0; SICKELED CELLS 0; TARGET CELLS 0; TEAR DROP CELLS 0; TOXIC GRANULATION 0
[2022-04-12] MEDS: REMDESIVIR 100 MG in SODIUM CHLORIDE 250 ML IVPB SCH (11:21)
[2022-04-12] MEDS: KCL 10 MEQ IVPB 10 MEQ/100 ML INFUS.BAG IVPB SCH ×3 (12:24→15:24)
[2022-04-13] MEDS: NAFCILLIN - 2 GM in DEXTROSE 5%-WATER 100 ML IVPB SCH ×6 (02:50→21:38)
[2022-04-13] MEDS ORDERED: POTASSIUM CHLORIDE TABS 20 MEQ TABLET.ER (FP) PO ONE ×2 (07:23→17:00)
[2022-04-13] MEDS ORDERED: FUROSEMIDE 40 MG/4 ML INJECTABLE VIAL IVPUSH ONE (07:24)
[2022-04-13 07:41] LABS: HEMOGLOBIN 10.6 GM/dL (11.7-16.9); MCH 31.8 pg (25.7-33.7); MCHC 33.1 g/dl (32.0-35.9); MEAN CELL VOLUME 96.1 fl (80-96); MEAN PLT VOLUME 9.8 fl (7.5-11.1); PLATELET COUNT 300 10^3/uL (134-434); RBC 3.33 M/mm3 (4.00-5.60); WHITE BLOOD COUNT 21.9 K/mm3 (4.0-10.0)
[2022-04-13 07:57] LABS: CALCIUM 7.4 mg/dL (8.5-10.1)
[2022-04-13 07:58] LABS: BLOOD UREA NITROGEN 54.9 mg/dL (7-18); MAGNESIUM 2.2 mg/dL (1.8-2.4)
[2022-04-13 08:00] LABS: CREATININE 1.6 mg/dL (0.55-1.3)
[2022-04-13 08:33] LABS: ANISOCYTOSIS 0; HELMET CELLS 0; HOWELL-JOLLY BODIES 0; MACROCYTOSIS 0; OVALOCYTE 0; ROULEAU 0; SICKELED CELLS 0; TARGET CELLS 0; TEAR DROP CELLS 0; TOXIC GRANULATION 0
[2022-04-13] MEDS: PANTOPRAZOLE SODIUM 40 MG VIAL IVPUSH SCH (09:25)
[2022-04-13] MEDS: CARVEDILOL 3.125 MG TABLET (FP) PO SCH ×2 (09:25→21:37)
[2022-04-13] MEDS: LACTOBACILLUS ACIDOPHILUS 1 TABLET PO SCH (09:25)
[2022-04-13] MEDS: DEXAMETHASONE SOD PHOSPHATE 10 MG/1 ML VIAL IVPUSH SCH (09:25)
[2022-04-13] MEDS: APIXABAN 5 MG TABLET PO SCH ×2 (09:25→21:37)
[2022-04-13] MEDS: ERTAPENEM SODIUM 1 GM in SODIUM CHLORIDE 50 ML IVPB SCH (09:26)
[2022-04-13] MEDS ORDERED: NAFCILLIN NA 2 GM VIAL IVPB ONE (10:07)
[2022-04-13] MEDS: REMDESIVIR 100 MG in SODIUM CHLORIDE 250 ML IVPB SCH (11:29)
[2022-04-13] MEDS ORDERED: ACETAMINOPHEN 1000 MG/100 ML BAG IVPB PRN (18:12)
[2022-04-14] MEDS: NAFCILLIN - 2 GM in DEXTROSE 5%-WATER 100 ML IVPB SCH ×6 (03:02→21:32)
[2022-04-14 08:08] LABS: ALBUMIN 1.5 g/dl (3.4-5.0)
[2022-04-14 08:10] LABS: BILIRUBIN,DIRECT 1.2 mg/dL (0.0-0.2)
[2022-04-14 08:12] LABS: BILIRUBIN,TOTAL 2.5 mg/dL (0.2-1)
[2022-04-14] MEDS: DEXAMETHASONE SOD PHOSPHATE 10 MG/1 ML VIAL IVPUSH SCH (09:50)
[2022-04-14] MEDS: APIXABAN 5 MG TABLET PO SCH ×2 (09:51→21:32)
[2022-04-14] MEDS: LACTOBACILLUS ACIDOPHILUS 1 TABLET PO SCH (09:51)
[2022-04-14] MEDS: CARVEDILOL 3.125 MG TABLET (FP) PO SCH ×2 (09:52→21:33)
[2022-04-14] MEDS: PANTOPRAZOLE SODIUM 40 MG VIAL IVPUSH SCH (09:57)
[2022-04-14] MEDS: ERTAPENEM SODIUM 1 GM in SODIUM CHLORIDE 50 ML IVPB SCH (11:12)
[2022-04-14] MEDS: REMDESIVIR 100 MG in SODIUM CHLORIDE 250 ML IVPB SCH (11:52)
[2022-04-15] MEDS: NAFCILLIN - 2 GM in DEXTROSE 5%-WATER 100 ML IVPB SCH ×6 (02:04→21:49)
[2022-04-15] MEDS: LACTOBACILLUS ACIDOPHILUS 1 TABLET PO SCH (09:33)
[2022-04-15] MEDS: APIXABAN 5 MG TABLET PO SCH ×2 (09:33→21:48)
[2022-04-15] MEDS: CARVEDILOL 3.125 MG TABLET (FP) PO SCH ×2 (09:33→21:48)
[2022-04-15] MEDS: DEXAMETHASONE SOD PHOSPHATE 10 MG/1 ML VIAL IVPUSH SCH (09:33)
[2022-04-15] MEDS: ERTAPENEM SODIUM 1 GM in SODIUM CHLORIDE 50 ML IVPB SCH (09:34)
[2022-04-15] MEDS: PANTOPRAZOLE SODIUM 40 MG VIAL IVPUSH SCH (09:34)
[2022-04-15] MEDS ORDERED: ALBUTEROL SO4 2.5/IPRATROPIUM 0.5 INH SOL 3 ML VIAL.NEB. NEB PRN (09:40)
[2022-04-16] MEDS: NAFCILLIN - 2 GM in DEXTROSE 5%-WATER 100 ML IVPB SCH ×6 (01:17→21:04)
[2022-04-16 08:13] LABS: HEMATOCRIT 28.6 % (35.4-49); HEMOGLOBIN 9.7 GM/dL (11.7-16.9); MCH 33.2 pg (25.7-33.7); MCHC 34.1 g/dl (32.0-35.9); MEAN CELL VOLUME 97.4 fl (80-96); MEAN PLT VOLUME 8.8 fl (7.5-11.1); PLATELET COUNT 401 10^3/uL (134-434); RBC 2.93 M/mm3 (4.00-5.60); RDW 18.2 % (11.9-15.9); WHITE BLOOD COUNT 13.6 K/mm3 (4.0-10.0)
[2022-04-16 08:38] LABS: ALBUMIN 1.6 g/dl (3.4-5.0)
[2022-04-16 08:39] LABS: BLOOD UREA NITROGEN 60.6 mg/dL (7-18)
[2022-04-16 08:43] LABS: BILIRUBIN,TOTAL 2.4 mg/dL (0.2-1); TOT PROT 6.4 g/dl (6.4-8.2)
[2022-04-16] MEDS: DEXAMETHASONE SOD PHOSPHATE 10 MG/1 ML VIAL IVPUSH SCH (10:10)
[2022-04-16] MEDS: PANTOPRAZOLE SODIUM 40 MG VIAL IVPUSH SCH (10:10)
[2022-04-16] MEDS: CARVEDILOL 3.125 MG TABLET (FP) PO SCH ×2 (10:10→21:04)
[2022-04-16] MEDS: APIXABAN 5 MG TABLET PO SCH ×2 (10:10→21:04)
[2022-04-16] MEDS: LACTOBACILLUS ACIDOPHILUS 1 TABLET PO SCH (10:10)
[2022-04-16] MEDS: ERTAPENEM SODIUM 1 GM in SODIUM CHLORIDE 50 ML IVPB SCH (10:31)
[2022-04-16 12:21] LABS: ANISOCYTOSIS 0; MACROCYTOSIS 0; OVALOCYTE 1+; TEAR DROP CELLS 1+; TOXIC GRANULATION 2+
[2022-04-17] MEDS: NAFCILLIN - 2 GM in DEXTROSE 5%-WATER 100 ML IVPB SCH ×6 (01:25→21:12)
[2022-04-17] MEDS: FENTANYL NS IVPB 500 MCG/100 ML BAG IVPB SCH ×3 (01:55→17:43)
[2022-04-17] MEDS: MUPIROCIN 2% TOPICAL OINTMENT FOR DECOLONIZATION NS SCH ×3 (01:55→21:12)
[2022-04-17] MEDS: PROPOFOL 1,000,000 MCG/100 ML VIAL IVPB SCH ×2 (01:55→10:30)
[2022-04-17] MEDS: VASOPRESSIN 40 UNITS/100 ML BAG IV SCH (02:38)
[2022-04-17] MEDS ORDERED: ALBUTEROL SO4 2.5/IPRATROPIUM 0.5 INH SOL 3 ML VIAL.NEB. NEB PRN (02:51)
[2022-04-17] MEDS: NOREPINEPHRINE D5W PREMIX 16,000 MCG/500 ML BAG IVPB SCH (03:20)
[2022-04-17 03:40] LABS: ARTERIAL BLD GAS O2 SATURATION 95.9 % (95-98); ARTERIAL BLOOD GAS BASE EXCESS -6.5 mmol/L (-2-2); ARTERIAL BLOOD GAS PO2 99.5 mmHg (80-100)
[2022-04-17 03:42] LABS: ALLENS TEST POSITIVE
[2022-04-17 03:43] LABS: VENT MODE A/C; VENT RATE 14
[2022-04-17 03:45] LABS: ARTERIAL BLOOD GAS pH 7.193 (7.350-7.450)
[2022-04-17 04:09] LABS: HEMATOCRIT 24.5 % (35.4-49); HEMOGLOBIN 8.1 GM/dL (11.7-16.9); MCH 32.8 pg (25.7-33.7); MCHC 33.3 g/dl (32.0-35.9); MEAN CELL VOLUME 98.5 fl (80-96); MEAN PLT VOLUME 8.4 fl (7.5-11.1); PLATELET COUNT 341 10^3/uL (134-434); RBC 2.48 M/mm3 (4.00-5.60); RDW 17.3 % (11.9-15.9); WHITE BLOOD COUNT 12.9 K/mm3 (4.0-10.0)
[2022-04-17 04:16] LABS: INR 1.36 (0.83-1.09); PROTHROMBIN TIME (PATIENT) 15.7 SEC (9.7-13.0)
[2022-04-17 04:18] LABS: ACTIVATED PTT 24.9 SECONDS (25.2-36.5)
[2022-04-17 04:29] LABS: ALBUMIN 1.4 g/dl (3.4-5.0); BLOOD UREA NITROGEN 65.5 mg/dL (7-18); CALCIUM 7.3 mg/dL (8.5-10.1); MAGNESIUM 2.4 mg/dL (1.8-2.4)
[2022-04-17 04:32] LABS: CREATININE 2.3 mg/dL (0.55-1.3)
[2022-04-17 04:33] LABS: EPI CELLS >36 /uL (0-25.1); HYALINE CASTS 6 /uL (0-3.1); PH,URINE 5.5 (5.0-8.0); TOT PROT 5.4 g/dl (6.4-8.2); URINE APPEARANCE CLOUDY; URINE BACTERIA 13 /uL (0-1359); URINE BILIRUBIN NEGATIVE (NEGATIVE); URINE COLOR YELLOW; URINE GLUCOSE (UA) NEGATIVE (NEGATIVE); URINE KETONE NEGATIVE (NEGATIVE); URINE LEUK ESTERASE NEGATIVE (NEGATIVE); URINE NITRITE NEGATIVE (NEGATIVE); URINE PROTEIN 2+ (NEGATIVE); URINE RBC 36 /uL (0-23.9); URINE UROBILINOGEN 0.2 mg/dL (0.2-1.0)
[2022-04-17 05:11] LABS: ANISOCYTOSIS 1+
[2022-04-17] MEDS ORDERED: fentaNYL CITRATE 250 MCG/5 ML VIAL ONE (05:58)
[2022-04-17 06:36] LABS: ARTERIAL BLD GAS O2 SATURATION 95.4 % (95-98); ARTERIAL BLOOD GAS BASE EXCESS -1.7 mmol/L (-2-2); ARTERIAL BLOOD GAS PO2 75.5 mmHg (80-100); ARTERIAL BLOOD GAS pH 7.417 (7.350-7.450)
[2022-04-17 06:40] LABS: ALLENS TEST POSITIVE; VENT MODE A/C; VENT RATE 22
[2022-04-17 07:31] LABS: ALBUMIN 1.4 g/dl (3.4-5.0); BLOOD UREA NITROGEN 65.8 mg/dL (7-18); CALCIUM 7.4 mg/dL (8.5-10.1)
[2022-04-17 07:35] LABS: CREATININE 2.4 mg/dL (0.55-1.3)
[2022-04-17 07:36] LABS: BILIRUBIN,TOTAL 1.9 mg/dL (0.2-1); TOT PROT 5.5 g/dl (6.4-8.2)
[2022-04-17] MEDS ORDERED: PANTOPRAZOLE SODIUM 40 MG VIAL IVPUSH SCH (10:00)
[2022-04-17] MEDS ORDERED: FUROSEMIDE 40 MG/4 ML INJECTABLE VIAL IVPUSH ONE (10:33)
[2022-04-17 11:02] LABS: URINE WBC 94 /uL (0-25.8)
[2022-04-17] MEDS: DEXAMETHASONE SOD PHOSPHATE 10 MG/1 ML VIAL IVPUSH SCH (11:03)
[2022-04-17] MEDS: PANTOPRAZOLE SODIUM 40 MG VIAL IVPUSH SCH (11:04)
[2022-04-17] MEDS: ERTAPENEM SODIUM 1 GM in SODIUM CHLORIDE 50 ML IVPB SCH (11:04)
[2022-04-17] MEDS: CHLORHEXIDINE GLUCONATE 4% CLEANSER FOR DECOLONIZATION TP SCH (21:12)
[2022-04-18] MEDS: NAFCILLIN - 2 GM in DEXTROSE 5%-WATER 100 ML IVPB SCH ×6 (01:11→21:06)
[2022-04-18] MEDS: PROPOFOL 1,000,000 MCG/100 ML VIAL IVPB SCH (03:06)
[2022-04-18] MEDS: FENTANYL NS IVPB 500 MCG/100 ML BAG IVPB SCH (03:06)
[2022-04-18] MEDS: VASOPRESSIN 40 UNITS/100 ML BAG IV SCH (03:11)
[2022-04-18] MEDS: NOREPINEPHRINE D5W PREMIX 16,000 MCG/500 ML BAG IVPB SCH (03:11)
[2022-04-18 07:40] LABS: HEMATOCRIT 23.5 % (35.4-49); HEMOGLOBIN 7.9 GM/dL (11.7-16.9); MCH 32.3 pg (25.7-33.7); MCHC 33.8 g/dl (32.0-35.9); MEAN CELL VOLUME 95.6 fl (80-96); MEAN PLT VOLUME 8.8 fl (7.5-11.1); PLATELET COUNT 310 10^3/uL (134-434); RBC 2.46 M/mm3 (4.00-5.60); WHITE BLOOD COUNT 10.5 K/mm3 (4.0-10.0)
[2022-04-18 07:42] LABS: CHLORIDE 114 mmol/L (98-107); SODIUM 149 mmol/L (136-145)
[2022-04-18 07:48] LABS: BLOOD UREA NITROGEN 65.2 mg/dL (7-18); CALCIUM 7.4 mg/dL (8.5-10.1); CO2 27 mmol/L (21-32); GLUCOSE,RANDOM 80 mg/dL (74-106); MAGNESIUM 2.3 mg/dL (1.8-2.4)
[2022-04-18 07:49] LABS: ALBUMIN 1.3 g/dl (3.4-5.0)
[2022-04-18 07:50] LABS: PHOSPHOROUS 3.6 mg/dL (2.5-4.9); SGPT/ALT 16 U/L (13-61)
[2022-04-18 07:52] LABS: BILIRUBIN,TOTAL 2.1 mg/dL (0.2-1); CREATININE 2.2 mg/dL (0.55-1.3); SGOT/AST 23 U/L (15-37); TOT PROT 5.3 g/dl (6.4-8.2)
[2022-04-18 07:53] LABS: ALK PHOS 64 U/L (45-117)
[2022-04-18 08:01] LABS: ANION GAP 8 MMOL/L (8-16)
[2022-04-18] MEDS: KCL 10 MEQ IVPB 10 MEQ/100 ML INFUS.BAG IVPB SCH ×5 (08:45→17:29)
[2022-04-18] MEDS: DEXAMETHASONE SOD PHOSPHATE 10 MG/1 ML VIAL IVPUSH SCH (09:05)
[2022-04-18] MEDS: PANTOPRAZOLE SODIUM 40 MG VIAL IVPUSH SCH (09:06)
[2022-04-18] MEDS: MUPIROCIN 2% TOPICAL OINTMENT FOR DECOLONIZATION NS SCH ×2 (10:45→21:06)
[2022-04-18] MEDS: ERTAPENEM SODIUM 1 GM in SODIUM CHLORIDE 50 ML IVPB SCH (10:52)
[2022-04-18] MEDS ORDERED: FUROSEMIDE 40 MG/4 ML INJECTABLE VIAL IVPUSH ONE (11:14)
[2022-04-18] MEDS ORDERED: POTASSIUM CHLORIDE 20 MEQ PREMIX IVPB 100 ML IVPB ONE ×5 (13:51→23:55)
[2022-04-18] MEDS ORDERED: DEXTROSE 50%-WATER 25 GM/50 ML DISP.SYRIN IVPUSH PRN (20:53)
[2022-04-18] MEDS: CHLORHEXIDINE GLUCONATE 4% CLEANSER FOR DECOLONIZATION TP SCH (21:06)
[2022-04-18 21:52] LABS: ARTERIAL BLD GAS O2 SATURATION 94.3 % (95-98); ARTERIAL BLOOD GAS BASE EXCESS -2.5 mmol/L (-2-2); ARTERIAL BLOOD GAS PO2 81.2 mmHg (80-100); ARTERIAL BLOOD GAS pH 7.272 (7.350-7.450)
[2022-04-18 21:56] LABS: ALLENS TEST POSITIVE
[2022-04-18 22:22] LABS: CALCIUM 7.6 mg/dL (8.5-10.1)
[2022-04-18 22:26] LABS: CREATININE 2.4 mg/dL (0.55-1.3)
[2022-04-19] MEDS: NAFCILLIN - 2 GM in DEXTROSE 5%-WATER 100 ML IVPB SCH ×4 (02:07→14:36)
[2022-04-19 02:43] LABS: ARTERIAL BLD GAS O2 SATURATION 98.4 % (95-98); ARTERIAL BLOOD GAS BASE EXCESS -4.1 mmol/L (-2-2); ARTERIAL BLOOD GAS PO2 149.7 mmHg (80-100); ARTERIAL BLOOD GAS pH 7.209 (7.350-7.450)
[2022-04-19 02:49] LABS: ALLENS TEST POSITIVE; VENT MODE S/T; VENT RATE 22
[2022-04-19] MEDS: VASOPRESSIN 40 UNITS/100 ML BAG IV SCH (02:50)
[2022-04-19 06:31] LABS: ARTERIAL BLD GAS O2 SATURATION 98.7 % (95-98); ARTERIAL BLOOD GAS BASE EXCESS -0.6 mmol/L (-2-2); ARTERIAL BLOOD GAS pH 7.316 (7.350-7.450)
[2022-04-19 06:33] LABS: ALLENS TEST POSITIVE; VENT MODE PSV; VENT RATE 26
[2022-04-19 07:55] LABS: HEMATOCRIT 27.2 % (35.4-49); HEMOGLOBIN 9.2 GM/dL (11.7-16.9); MCH 32.5 pg (25.7-33.7); MCHC 33.9 g/dl (32.0-35.9); MEAN CELL VOLUME 95.9 fl (80-96); MEAN PLT VOLUME 8.5 fl (7.5-11.1); PLATELET COUNT 382 10^3/uL (134-434); RBC 2.84 M/mm3 (4.00-5.60); RDW 17.1 % (11.9-15.9); WHITE BLOOD COUNT 12.8 K/mm3 (4.0-10.0)
[2022-04-19 08:19] LABS: ALBUMIN 1.6 g/dl (3.4-5.0); CALCIUM 7.8 mg/dL (8.5-10.1)
[2022-04-19 08:20] LABS: BLOOD UREA NITROGEN 69.6 mg/dL (7-18)
[2022-04-19 08:22] LABS: CREATININE 2.5 mg/dL (0.55-1.3); PHOSPHOROUS 6.1 mg/dL (2.5-4.9)
[2022-04-19 08:23] LABS: BILIRUBIN,TOTAL 2.7 mg/dL (0.2-1); MAGNESIUM 2.3 mg/dL (1.8-2.4); TOT PROT 6.4 g/dl (6.4-8.2)
[2022-04-19] MEDS: ERTAPENEM SODIUM 1 GM in SODIUM CHLORIDE 50 ML IVPB SCH (09:50)
[2022-04-19] MEDS: MUPIROCIN 2% TOPICAL OINTMENT FOR DECOLONIZATION NS SCH ×2 (10:03→21:09)
[2022-04-19] MEDS: PANTOPRAZOLE SODIUM 40 MG VIAL IVPUSH SCH (10:04)
[2022-04-19] MEDS: DEXAMETHASONE SOD PHOSPHATE 10 MG/1 ML VIAL IVPUSH SCH (10:04)
[2022-04-19] MEDS ORDERED: AMINO ACIDS 4.25%/D5W 1,000 ML IV SCH (10:15)
[2022-04-19] MEDS: KCL 10 MEQ IVPB 10 MEQ/100 ML INFUS.BAG IVPB SCH ×3 (11:31→14:35)
[2022-04-19] MEDS: POTASSIUM CHLORIDE 20 MEQ in AMINO ACIDS 4.25%/D5W 1,000 ML IV SCH (11:38)
[2022-04-19] MEDS: ALBUTEROL SO4 2.5/IPRATROPIUM 0.5 INH SOL 3 ML VIAL.NEB. NEB SCH ×3 (12:36→23:34)
[2022-04-19] MEDS ORDERED: BENZOCAINE 20% 57 GM BOTTLE TP PRN (16:20)
[2022-04-19] MEDS ORDERED: PHENOL 177 ML SPRAY BOTTLE MM PRN (16:22)
[2022-04-19] MEDS: CEFAZOLIN SODIUM 2 GM in DEXTROSE 5%-WATER 100 ML IVPB SCH (21:09)
[2022-04-19] MEDS: CHLORHEXIDINE GLUCONATE 4% CLEANSER FOR DECOLONIZATION TP SCH (21:09)
[2022-04-20] MEDS: POTASSIUM CHLORIDE 20 MEQ in AMINO ACIDS 4.25%/D5W 1,000 ML IV SCH ×2 (03:17→19:23)
[2022-04-20] MEDS: ALBUTEROL SO4 2.5/IPRATROPIUM 0.5 INH SOL 3 ML VIAL.NEB. NEB SCH ×4 (05:58→20:38)
[2022-04-20] MEDS: VASOPRESSIN 40 UNITS/100 ML BAG IV SCH (05:58)
[2022-04-20 07:08] LABS: ARTERIAL BLD GAS O2 SATURATION 98.2 % (95-98); ARTERIAL BLOOD GAS PO2 130.9 mmHg (80-100); ARTERIAL BLOOD GAS pH 7.273 (7.350-7.450)
[2022-04-20 07:10] LABS: ALLENS TEST POSITIVE
[2022-04-20 07:11] LABS: VENT MODE PSV; VENT RATE 26
[2022-04-20 07:49] LABS: HEMATOCRIT 27.4 % (35.4-49); HEMOGLOBIN 9.1 GM/dL (11.7-16.9); MCH 32.5 pg (25.7-33.7); MCHC 33.4 g/dl (32.0-35.9); MEAN CELL VOLUME 97.3 fl (80-96); MEAN PLT VOLUME 8.8 fl (7.5-11.1); PLATELET COUNT 390 10^3/uL (134-434); RBC 2.81 M/mm3 (4.00-5.60); WHITE BLOOD COUNT 15.9 K/mm3 (4.0-10.0)
[2022-04-20 08:28] LABS: ALBUMIN 1.6 g/dl (3.4-5.0); BLOOD UREA NITROGEN 73.5 mg/dL (7-18); MAGNESIUM 2.5 mg/dL (1.8-2.4)
[2022-04-20 08:31] LABS: CREATININE 2.1 mg/dL (0.55-1.3); PHOSPHOROUS 5.2 mg/dL (2.5-4.9)
[2022-04-20 08:32] LABS: BILIRUBIN,TOTAL 1.6 mg/dL (0.2-1); TOT PROT 6.6 g/dl (6.4-8.2)
[2022-04-20] MEDS: CEFAZOLIN SODIUM 2 GM in DEXTROSE 5%-WATER 100 ML IVPB SCH ×2 (09:49→17:39)
[2022-04-20] MEDS: PANTOPRAZOLE SODIUM 40 MG VIAL IVPUSH SCH (09:49)
[2022-04-20] MEDS: DEXAMETHASONE SOD PHOSPHATE 10 MG/1 ML VIAL IVPUSH SCH (09:52)
[2022-04-20] MEDS: ERTAPENEM SODIUM 1 GM in SODIUM CHLORIDE 50 ML IVPB SCH (10:15)
[2022-04-20] MEDS ORDERED: MIDAZOLAM HCL 5 MG/1 ML Single Dose Vial ONE (10:32)
[2022-04-20] MEDS ORDERED: PROPOFOL 0 ML ONE (10:32)
[2022-04-20] MEDS: MUPIROCIN 2% TOPICAL OINTMENT FOR DECOLONIZATION NS SCH ×2 (11:37→21:40)
[2022-04-20 13:43] LABS: ARTERIAL BLD GAS O2 SATURATION 97.7 % (95-98); ARTERIAL BLOOD GAS BASE EXCESS -2.2 mmol/L (-2-2); ARTERIAL BLOOD GAS PO2 132.7 mmHg (80-100)
[2022-04-20 13:49] LABS: ALLENS TEST POSITIVE
[2022-04-20 13:50] LABS: VENT MODE PSV; VENT RATE 26
[2022-04-20 13:52] LABS: ARTERIAL BLOOD GAS pH 7.163 (7.350-7.450)
[2022-04-20 21:22] LABS: ARTERIAL BLD GAS O2 SATURATION 98.8 % (95-98); ARTERIAL BLOOD GAS BASE EXCESS -1.1 mmol/L (-2-2); ARTERIAL BLOOD GAS PO2 163.9 mmHg (80-100); ARTERIAL BLOOD GAS pH 7.248 (7.350-7.450)
[2022-04-20 21:27] LABS: VENT MODE PSV; VENT RATE 26
[2022-04-20] MEDS: FAT EMUL/SOY/MCT/OLIV/FISH OIL 250 ML IV SCH (21:39)
[2022-04-20] MEDS: CHLORHEXIDINE GLUCONATE 4% CLEANSER FOR DECOLONIZATION TP SCH (21:40)
[2022-04-20] MEDS ORDERED: SMOFLIPID - FAT EMUL/SOY/MCT/OLIV/FISH OIL 250 ML EMULSION IV SCH (22:00)
[2022-04-21] MEDS: CEFAZOLIN SODIUM 2 GM in DEXTROSE 5%-WATER 100 ML IVPB SCH ×3 (01:14→17:52)
[2022-04-21] MEDS: VASOPRESSIN 40 UNITS/100 ML BAG IV SCH (02:56)
[2022-04-21 06:47] LABS: ARTERIAL BLD GAS O2 SATURATION 97.4 % (95-98); ARTERIAL BLOOD GAS BASE EXCESS -3.2 mmol/L (-2-2); ARTERIAL BLOOD GAS PO2 118.5 mmHg (80-100)
[2022-04-21 06:52] LABS: VENT MODE PSV; VENT RATE 26
[2022-04-21 07:32] LABS: HEMATOCRIT 24.9 % (35.4-49); HEMOGLOBIN 8.5 GM/dL (11.7-16.9); MCH 34.1 pg (25.7-33.7); MCHC 34.1 g/dl (32.0-35.9); MEAN CELL VOLUME 100.2 fl (80-96); MEAN PLT VOLUME 8.3 fl (7.5-11.1); PLATELET COUNT 264 10^3/uL (134-434); RBC 2.49 M/mm3 (4.00-5.60); RDW 18.1 % (11.9-15.9); WHITE BLOOD COUNT 13.2 K/mm3 (4.0-10.0)
[2022-04-21 07:50] LABS: MAGNESIUM 2.3 mg/dL (1.8-2.4)
[2022-04-21 07:52] LABS: PHOSPHOROUS 4.3 mg/dL (2.5-4.9)
[2022-04-21 07:53] LABS: CREATININE 1.7 mg/dL (0.55-1.3)
[2022-04-21] MEDS: ALBUTEROL SO4 2.5/IPRATROPIUM 0.5 INH SOL 3 ML VIAL.NEB. NEB SCH ×4 (08:29→20:29)
[2022-04-21] MEDS: DEXAMETHASONE SOD PHOSPHATE 10 MG/1 ML VIAL IVPUSH SCH (09:32)
[2022-04-21] MEDS: PANTOPRAZOLE SODIUM 40 MG VIAL IVPUSH SCH (09:32)
[2022-04-21] MEDS ORDERED: ATORVASTATIN CA 40 MG TABLET (FP) PO SCH (10:00)
[2022-04-21] MEDS: MUPIROCIN 2% TOPICAL OINTMENT FOR DECOLONIZATION NS SCH ×2 (10:30→21:13)
[2022-04-21] MEDS: ERTAPENEM SODIUM 1 GM in SODIUM CHLORIDE 50 ML IVPB SCH (10:30)
[2022-04-21] MEDS: POTASSIUM CHLORIDE 20 MEQ in AMINO ACIDS 4.25%/D5W 1,000 ML IV SCH (14:10)
[2022-04-21] MEDS ORDERED: ACETAMINOPHEN 1000 MG/100 ML BAG IVPB STA (15:43)
[2022-04-21] MEDS: CHLORHEXIDINE GLUCONATE 4% CLEANSER FOR DECOLONIZATION TP SCH (21:13)
[2022-04-21] MEDS: FAT EMUL/SOY/MCT/OLIV/FISH OIL 250 ML IV SCH (21:13)
[2022-04-22] MEDS: CEFAZOLIN SODIUM 2 GM in DEXTROSE 5%-WATER 100 ML IVPB SCH ×3 (02:00→17:27)
[2022-04-22] MEDS: VASOPRESSIN 40 UNITS/100 ML BAG IV SCH (03:41)
[2022-04-22] MEDS: POTASSIUM CHLORIDE 20 MEQ in AMINO ACIDS 4.25%/D5W 1,000 ML IV SCH ×2 (03:41→17:28)
[2022-04-22 07:29] LABS: HEMATOCRIT 26.2 % (35.4-49); HEMOGLOBIN 8.7 GM/dL (11.7-16.9); MCHC 33.2 g/dl (32.0-35.9); MEAN CELL VOLUME 102.5 fl (80-96); PLATELET COUNT 254 10^3/uL (134-434); RBC 2.56 M/mm3 (4.00-5.60); RDW 18.7 % (11.9-15.9); WHITE BLOOD COUNT 15.7 K/mm3 (4.0-10.0)
[2022-04-22 07:52] LABS: BLOOD UREA NITROGEN 67.1 mg/dL (7-18); MAGNESIUM 2.5 mg/dL (1.8-2.4)
[2022-04-22 07:55] LABS: CREATININE 1.9 mg/dL (0.55-1.3); PHOSPHOROUS 4.5 mg/dL (2.5-4.9)
[2022-04-22] MEDS: ALBUTEROL SO4 2.5/IPRATROPIUM 0.5 INH SOL 3 ML VIAL.NEB. NEB SCH ×4 (08:57→20:24)
[2022-04-22] MEDS: DEXAMETHASONE SOD PHOSPHATE 10 MG/1 ML VIAL IVPUSH SCH (10:30)
[2022-04-22] MEDS: PANTOPRAZOLE SODIUM 40 MG VIAL IVPUSH SCH (10:30)
[2022-04-22] MEDS: ERTAPENEM SODIUM 1 GM in SODIUM CHLORIDE 50 ML IVPB SCH (11:37)
[2022-04-22] MEDS: FAT EMUL/SOY/MCT/OLIV/FISH OIL 250 ML IV SCH (21:45)
[2022-04-22] MEDS: CHLORHEXIDINE GLUCONATE 4% CLEANSER FOR DECOLONIZATION TP SCH (21:46)
[2022-04-23] MEDS: CEFAZOLIN SODIUM 2 GM in DEXTROSE 5%-WATER 100 ML IVPB SCH ×3 (01:01→17:21)
[2022-04-23] MEDS: VASOPRESSIN 40 UNITS/100 ML BAG IV SCH (06:37)
[2022-04-23 07:50] LABS: BASO % 0.2 % (0-2.0); EOS % 0.3 % (0-4.5); HEMATOCRIT 20.9 % (35.4-49); HEMOGLOBIN 7.2 GM/dL (11.7-16.9); LYMPH % 6.3 % (8-40); MCH 34.3 pg (25.7-33.7); MCHC 34.2 g/dl (32.0-35.9); MEAN CELL VOLUME 100.1 fl (80-96); MEAN PLT VOLUME 9.2 fl (7.5-11.1); NEUT % 87.2 % (42.8-82.8); PLATELET COUNT 171 10^3/uL (134-434); RBC 2.09 M/mm3 (4.00-5.60); WHITE BLOOD COUNT 10.5 K/mm3 (4.0-10.0)
[2022-04-23 08:11] LABS: CHLORIDE 114 mmol/L (98-107); SODIUM 147 mmol/L (136-145)
[2022-04-23 08:26] LABS: ALBUMIN 1.7 g/dl (3.4-5.0); ANION GAP 7 MMOL/L (8-16); BLOOD UREA NITROGEN 78.3 mg/dL (7-18); CALCIUM 8.1 mg/dL (8.5-10.1); CO2 26 mmol/L (21-32); MAGNESIUM 2.4 mg/dL (1.8-2.4)
[2022-04-23 08:28] LABS: SGPT/ALT < 6 U/L (13-61)
[2022-04-23 08:29] LABS: CREATININE 1.9 mg/dL (0.55-1.3); PHOSPHOROUS 2.8 mg/dL (2.5-4.9); SGOT/AST 27 U/L (15-37)
[2022-04-23 08:30] LABS: TOT PROT 6.1 g/dl (6.4-8.2)
[2022-04-23 08:31] LABS: ALK PHOS 76 U/L (45-117); BILIRUBIN,TOTAL 1.8 mg/dL (0.2-1)
[2022-04-23 08:35] LABS: GLUCOSE,RANDOM 102 mg/dL (74-106)
[2022-04-23] MEDS: ALBUTEROL SO4 2.5/IPRATROPIUM 0.5 INH SOL 3 ML VIAL.NEB. NEB SCH ×4 (08:35→20:30)
[2022-04-23] MEDS: DEXAMETHASONE SOD PHOSPHATE 10 MG/1 ML VIAL IVPUSH SCH (11:00)
[2022-04-23] MEDS: PANTOPRAZOLE SODIUM 40 MG VIAL IVPUSH SCH (11:00)
[2022-04-23] MEDS: ACETAMINOPHEN 1000 MG/100 ML BAG IVPB PRN (11:24)
[2022-04-23] MEDS: POTASSIUM CHLORIDE 20 MEQ in AMINO ACIDS 4.25%/D5W 1,000 ML IV SCH (13:29)
[2022-04-23] MEDS: FAT EMUL/SOY/MCT/OLIV/FISH OIL 250 ML IV SCH (21:03)
[2022-04-23] MEDS: CHLORHEXIDINE GLUCONATE 4% CLEANSER FOR DECOLONIZATION TP SCH (21:03)
[2022-04-24] MEDS: CEFAZOLIN SODIUM 2 GM in DEXTROSE 5%-WATER 100 ML IVPB SCH ×3 (01:32→17:54)
[2022-04-24] MEDS: VASOPRESSIN 40 UNITS/100 ML BAG IV SCH (03:00)
[2022-04-24] MEDS: POTASSIUM CHLORIDE 20 MEQ in AMINO ACIDS 4.25%/D5W 1,000 ML IV SCH (05:17)
[2022-04-24] MEDS: ALBUTEROL SO4 2.5/IPRATROPIUM 0.5 INH SOL 3 ML VIAL.NEB. NEB SCH ×4 (07:49→20:30)
[2022-04-24 08:20] LABS: HEMATOCRIT 20.4 % (35.4-49); MCH 33.1 pg (25.7-33.7); MCHC 33.8 g/dl (32.0-35.9); MEAN PLT VOLUME 10.1 fl (7.5-11.1); PLATELET COUNT 161 10^3/uL (134-434); RBC 2.08 M/mm3 (4.00-5.60); RDW 17.2 % (11.9-15.9); WHITE BLOOD COUNT 11.1 K/mm3 (4.0-10.0)
[2022-04-24 08:27] LABS: CHLORIDE 114 mmol/L (98-107); SODIUM 148 mmol/L (136-145)
[2022-04-24 08:29] LABS: CALCIUM 7.7 mg/dL (8.5-10.1)
[2022-04-24 08:30] LABS: ALBUMIN 1.5 g/dl (3.4-5.0); BLOOD UREA NITROGEN 79.6 mg/dL (7-18); CO2 24 mmol/L (21-32); GLUCOSE,RANDOM 103 mg/dL (74-106); MAGNESIUM 2.1 mg/dL (1.8-2.4)
[2022-04-24 08:33] LABS: CREATININE 1.5 mg/dL (0.55-1.3); SGOT/AST 32 U/L (15-37); SGPT/ALT 6 U/L (13-61)
[2022-04-24 08:34] LABS: BILIRUBIN,TOTAL 1.2 mg/dL (0.2-1); TOT PROT 5.8 g/dl (6.4-8.2)
[2022-04-24 08:36] LABS: ALK PHOS 71 U/L (45-117); ANION GAP 10 MMOL/L (8-16)
[2022-04-24 08:43] LABS: HEMOGLOBIN 6.9 GM/dL (11.7-16.9)
[2022-04-24] MEDS: DEXAMETHASONE SOD PHOSPHATE 10 MG/1 ML VIAL IVPUSH SCH (09:26)
[2022-04-24] MEDS: PANTOPRAZOLE SODIUM 40 MG VIAL IVPUSH SCH (09:27)
[2022-04-24] MEDS ORDERED: POTASSIUM PHOSPHATE 30 MM in DEXTROSE 5%-WATER - 250 ML IVPB ONE (10:00)
[2022-04-24] MEDS: KCL 10 MEQ IVPB 10 MEQ/100 ML INFUS.BAG IVPB SCH ×6 (10:18→21:26)
[2022-04-24] MEDS: POTASSIUM CHLORIDE 40 MEQ in AMINO ACIDS 4.25%/D5W 1,000 ML IV SCH (20:56)
[2022-04-24] MEDS: CHLORHEXIDINE GLUCONATE 4% CLEANSER FOR DECOLONIZATION TP SCH (21:26)
[2022-04-24] MEDS: FAT EMUL/SOY/MCT/OLIV/FISH OIL 250 ML IV SCH (23:10)
[2022-04-25] MEDS: CEFAZOLIN SODIUM 2 GM in DEXTROSE 5%-WATER 100 ML IVPB SCH ×3 (01:46→17:17)
[2022-04-25] MEDS: VASOPRESSIN 40 UNITS/100 ML BAG IV SCH (01:47)
[2022-04-25 07:11] LABS: CHLORIDE 114 mmol/L (98-107); SODIUM 146 mmol/L (136-145)
[2022-04-25] MEDS: ALBUTEROL SO4 2.5/IPRATROPIUM 0.5 INH SOL 3 ML VIAL.NEB. NEB SCH ×4 (07:19→20:42)
[2022-04-25 07:21] LABS: ALBUMIN 1.6 g/dl (3.4-5.0); CALCIUM 7.7 mg/dL (8.5-10.1)
[2022-04-25 07:22] LABS: BLOOD UREA NITROGEN 71.5 mg/dL (7-18); CO2 24 mmol/L (21-32); GLUCOSE,RANDOM 125 mg/dL (74-106); MAGNESIUM 2.1 mg/dL (1.8-2.4)
[2022-04-25 07:24] LABS: PHOSPHOROUS 1.5 mg/dL (2.5-4.9); SGPT/ALT 11 U/L (13-61)
[2022-04-25 07:25] LABS: CREATININE 1.3 mg/dL (0.55-1.3); SGOT/AST 52 U/L (15-37)
[2022-04-25 07:26] LABS: BILIRUBIN,TOTAL 1.3 mg/dL (0.2-1); TOT PROT 6.1 g/dl (6.4-8.2)
[2022-04-25 07:27] LABS: ALK PHOS 74 U/L (45-117)
[2022-04-25 07:42] LABS: ANION GAP 8 MMOL/L (8-16)
[2022-04-25 07:52] LABS: BASO % 0.3 % (0-2.0); EOS % 0.7 % (0-4.5); HEMATOCRIT 25.7 % (35.4-49); LYMPH % 6.7 % (8-40); MCH 33.5 pg (25.7-33.7); MCHC 35.1 g/dl (32.0-35.9); MEAN CELL VOLUME 95.5 fl (80-96); MEAN PLT VOLUME 10.1 fl (7.5-11.1); MONO % 5.6 % (3.8-10.2); NEUT % 86.7 % (42.8-82.8); PLATELET COUNT 138 10^3/uL (134-434); RBC 2.69 M/mm3 (4.00-5.60); RDW 16.3 % (11.9-15.9); WHITE BLOOD COUNT 11.6 K/mm3 (4.0-10.0)
[2022-04-25] MEDS: POTASSIUM CHLORIDE 40 MEQ in AMINO ACIDS 4.25%/D5W 1,000 ML IV SCH ×2 (09:34→12:33)
[2022-04-25] MEDS: DEXAMETHASONE SOD PHOSPHATE 10 MG/1 ML VIAL IVPUSH SCH (09:34)
[2022-04-25] MEDS: PANTOPRAZOLE SODIUM 40 MG VIAL IVPUSH SCH (09:35)
[2022-04-25] MEDS ORDERED: POTASSIUM PHOSPHATE 30 MM in DEXTROSE 5%-WATER - 250 ML IVPB ONE (10:08)
[2022-04-25] MEDS: KCL 10 MEQ IVPB 10 MEQ/100 ML INFUS.BAG IVPB SCH ×6 (10:15→21:51)
[2022-04-25] MEDS: FAT EMUL/SOY/MCT/OLIV/FISH OIL 250 ML IV SCH (21:51)
[2022-04-25] MEDS: CHLORHEXIDINE GLUCONATE 4% CLEANSER FOR DECOLONIZATION TP SCH (22:04)
[2022-04-26] MEDS: CEFAZOLIN SODIUM 2 GM in DEXTROSE 5%-WATER 100 ML IVPB SCH ×3 (01:20→17:16)
[2022-04-26] MEDS: POTASSIUM CHLORIDE 40 MEQ in AMINO ACIDS 4.25%/D5W 1,000 ML IV SCH ×3 (03:41→21:34)
[2022-04-26] MEDS: VASOPRESSIN 40 UNITS/100 ML BAG IV SCH (03:43)
[2022-04-26 07:17] LABS: ALBUMIN 1.5 g/dl (3.4-5.0)
[2022-04-26 07:18] LABS: BLOOD UREA NITROGEN 80.6 mg/dL (7-18)
[2022-04-26 07:20] LABS: CALCIUM 7.8 mg/dL (8.5-10.1); MAGNESIUM 1.9 mg/dL (1.8-2.4)
[2022-04-26 07:21] LABS: CREATININE 1.1 mg/dL (0.55-1.3)
[2022-04-26 07:22] LABS: TOT PROT 5.6 g/dl (6.4-8.2)
[2022-04-26] MEDS: ALBUTEROL SO4 2.5/IPRATROPIUM 0.5 INH SOL 3 ML VIAL.NEB. NEB SCH ×4 (07:50→20:30)
[2022-04-26] MEDS: ACETAMINOPHEN 1000 MG/100 ML BAG IVPB PRN (08:59)
[2022-04-26] MEDS: PANTOPRAZOLE SODIUM 40 MG VIAL IVPUSH SCH (08:59)
[2022-04-26] MEDS ORDERED: FUROSEMIDE 40 MG/4 ML INJECTABLE VIAL IVPUSH ONE (09:13)
[2022-04-26] MEDS ORDERED: KCL 10 MEQ IVPB 10 MEQ/100 ML INFUS.BAG IVPB SCH (10:30)
[2022-04-26] MEDS ORDERED: POTASSIUM PHOSPHATE 30 MM in SODIUM CHLORIDE 500 ML IVPB ONE (11:30)
[2022-04-26 14:21] LABS: BASO % 0.2 % (0-2.0); EOS % 0.8 % (0-4.5); HEMATOCRIT 22.2 % (35.4-49); HEMOGLOBIN 7.3 GM/dL (11.7-16.9); LYMPH % 9.9 % (8-40); MCH 32.3 pg (25.7-33.7); MCHC 32.7 g/dl (32.0-35.9); MEAN CELL VOLUME 98.7 fl (80-96); MEAN PLT VOLUME 11.5 fl (7.5-11.1); MONO % 5.7 % (3.8-10.2); NEUT % 83.4 % (42.8-82.8); PLATELET COUNT 114 10^3/uL (134-434); RBC 2.25 M/mm3 (4.00-5.60); RDW 16.6 % (11.9-15.9); WHITE BLOOD COUNT 11.6 K/mm3 (4.0-10.0)
[2022-04-26] MEDS: KCL 10 MEQ IVPB 10 MEQ/100 ML INFUS.BAG IVPB SCH ×2 (21:34→22:58)
[2022-04-26] MEDS: CHLORHEXIDINE GLUCONATE 4% CLEANSER FOR DECOLONIZATION TP SCH (21:34)
[2022-04-27] MEDS: FAT EMUL/SOY/MCT/OLIV/FISH OIL 250 ML IV SCH ×2 (01:15→21:21)
[2022-04-27] MEDS: CEFAZOLIN SODIUM 2 GM in DEXTROSE 5%-WATER 100 ML IVPB SCH ×3 (01:54→17:44)
[2022-04-27] MEDS: VASOPRESSIN 40 UNITS/100 ML BAG IV SCH (02:53)
[2022-04-27 07:12] LABS: BASO % 0.2 % (0-2.0); EOS % 1.1 % (0-4.5); HEMATOCRIT 27.9 % (35.4-49); HEMOGLOBIN 9.5 GM/dL (11.7-16.9); LYMPH % 4.1 % (8-40); MCH 32.6 pg (25.7-33.7); MCHC 33.9 g/dl (32.0-35.9); MEAN CELL VOLUME 96.2 fl (80-96); MEAN PLT VOLUME 11.2 fl (7.5-11.1); MONO % 5.1 % (3.8-10.2); NEUT % 89.5 % (42.8-82.8); PLATELET COUNT 118 10^3/uL (134-434); RDW 16.3 % (11.9-15.9); WHITE BLOOD COUNT 14.8 K/mm3 (4.0-10.0)
[2022-04-27 07:27] LABS: CALCIUM 7.6 mg/dL (8.5-10.1)
[2022-04-27 07:28] LABS: ALBUMIN 1.5 g/dl (3.4-5.0); BLOOD UREA NITROGEN 69.6 mg/dL (7-18); MAGNESIUM 1.6 mg/dL (1.8-2.4)
[2022-04-27 07:31] LABS: CREATININE 1.1 mg/dL (0.55-1.3); PHOSPHOROUS 2.8 mg/dL (2.5-4.9)
[2022-04-27 07:32] LABS: BILIRUBIN,TOTAL 1.2 mg/dL (0.2-1); TOT PROT 5.8 g/dl (6.4-8.2)
[2022-04-27] MEDS: ALBUTEROL SO4 2.5/IPRATROPIUM 0.5 INH SOL 3 ML VIAL.NEB. NEB SCH ×2 (08:21→11:40)
[2022-04-27] MEDS: KCL 10 MEQ IVPB 10 MEQ/100 ML INFUS.BAG IVPB SCH ×6 (09:57→21:21)
[2022-04-27] MEDS: PANTOPRAZOLE SODIUM 40 MG VIAL IVPUSH SCH (09:59)
[2022-04-27] MEDS ORDERED: MAGNESIUM SULF 50% (8.12 MEQ/2 ML-1 GM VIAL) IVPB ONE (10:15)
[2022-04-27] MEDS: POTASSIUM CHLORIDE 40 MEQ in AMINO ACIDS 4.25%/D5W 1,000 ML IV SCH ×2 (11:00→22:29)
[2022-04-27] MEDS ORDERED: ALBUTEROL SO4 2.5/IPRATROPIUM 0.5 INH SOL 3 ML VIAL.NEB. NEB PRN (12:05)
[2022-04-27] MEDS: CHLORHEXIDINE GLUCONATE 4% CLEANSER FOR DECOLONIZATION TP SCH (21:22)
[2022-04-28] MEDS: CEFAZOLIN SODIUM 2 GM in DEXTROSE 5%-WATER 100 ML IVPB SCH ×3 (01:18→17:52)
[2022-04-28] MEDS: VASOPRESSIN 40 UNITS/100 ML BAG IV SCH (04:53)
[2022-04-28 07:48] LABS: CALCIUM 7.8 mg/dL (8.5-10.1)
[2022-04-28 07:49] LABS: ALBUMIN 1.6 g/dl (3.4-5.0); MAGNESIUM 1.8 mg/dL (1.8-2.4)
[2022-04-28 07:52] LABS: CREATININE 1.1 mg/dL (0.55-1.3); PHOSPHOROUS 1.9 mg/dL (2.5-4.9)
[2022-04-28 07:53] LABS: TOT PROT 5.8 g/dl (6.4-8.2)
[2022-04-28] MEDS ORDERED: POTASSIUM PHOSPHATE 30 MM in DEXTROSE 5%-WATER - 250 ML IVPB ONE (09:15)
[2022-04-28] MEDS: PANTOPRAZOLE SODIUM 40 MG VIAL IVPUSH SCH (09:29)
[2022-04-28] MEDS: CARVEDILOL 25 MG TABLET (FP) PO SCH ×2 (09:30→21:38)
[2022-04-28] MEDS: POTASSIUM CHLORIDE 40 MEQ in AMINO ACIDS 4.25%/D5W 1,000 ML IV SCH ×2 (11:13→21:18)
[2022-04-28] MEDS: FAT EMUL/SOY/MCT/OLIV/FISH OIL 250 ML IV SCH (21:19)
[2022-04-28] MEDS: CHLORHEXIDINE GLUCONATE 4% CLEANSER FOR DECOLONIZATION TP SCH (21:19)
[2022-04-29] MEDS: VASOPRESSIN 40 UNITS/100 ML BAG IV SCH (02:49)
[2022-04-29] MEDS: CEFAZOLIN SODIUM 2 GM in DEXTROSE 5%-WATER 100 ML IVPB SCH ×3 (02:50→17:10)
[2022-04-29 06:52] LABS: HEMATOCRIT 26.8 % (35.4-49); HEMOGLOBIN 8.8 GM/dL (11.7-16.9); MCH 32.7 pg (25.7-33.7); MCHC 32.9 g/dl (32.0-35.9); MEAN CELL VOLUME 99.3 fl (80-96); MEAN PLT VOLUME 12.2 fl (7.5-11.1); PLATELET COUNT 110 10^3/uL (134-434); RDW 21.2 % (11.9-15.9); WHITE BLOOD COUNT 19.4 K/mm3 (4.0-10.0)
[2022-04-29 07:21] LABS: CALCIUM 7.7 mg/dL (8.5-10.1)
[2022-04-29 07:22] LABS: ALBUMIN 1.6 g/dl (3.4-5.0); BLOOD UREA NITROGEN 51.1 mg/dL (7-18); MAGNESIUM 1.6 mg/dL (1.8-2.4)
[2022-04-29 07:25] LABS: PHOSPHOROUS 2.5 mg/dL (2.5-4.9)
[2022-04-29 07:27] LABS: BILIRUBIN,TOTAL 0.9 mg/dL (0.2-1); TOT PROT 6.1 g/dl (6.4-8.2)
[2022-04-29 09:58] LABS: ANISOCYTOSIS 1+; MACROCYTOSIS 1+
[2022-04-29] MEDS: CARVEDILOL 25 MG TABLET (FP) PO SCH ×2 (10:15→21:40)
[2022-04-29] MEDS: PANTOPRAZOLE SODIUM 40 MG VIAL IVPUSH SCH (10:16)
[2022-04-29] MEDS: POTASSIUM CHLORIDE 40 MEQ in AMINO ACIDS 4.25%/D5W 1,000 ML IV SCH ×2 (11:17→21:41)
[2022-04-29 19:10] LABS: EPI CELLS 4 /uL (0-25.1); HYALINE CASTS 2 /uL (0-3.1); URINE APPEARANCE CLOUDY; URINE BILIRUBIN NEGATIVE (NEGATIVE); URINE COLOR YELLOW; URINE GLUCOSE (UA) NEGATIVE (NEGATIVE); URINE KETONE NEGATIVE (NEGATIVE); URINE LEUK ESTERASE 3+ (NEGATIVE); URINE NITRITE POSITIVE (NEGATIVE); URINE PROTEIN 2+ (NEGATIVE); URINE RBC 124 /uL (0-23.9); URINE UROBILINOGEN 0.2 mg/dL (0.2-1.0); URINE WBC 1200 /uL (0-25.8)
[2022-04-29 19:54] LABS: URINE BACTERIA 104 /uL (0-1359)
[2022-04-29] MEDS: CHLORHEXIDINE GLUCONATE 4% CLEANSER FOR DECOLONIZATION TP SCH (21:40)
[2022-04-29] MEDS: FAT EMUL/SOY/MCT/OLIV/FISH OIL 250 ML IV SCH (21:41)
[2022-04-30] MEDS: POTASSIUM CHLORIDE 40 MEQ in AMINO ACIDS 4.25%/D5W 1,000 ML IV SCH ×4 (00:30→21:50)
[2022-04-30] MEDS: CEFAZOLIN SODIUM 2 GM in DEXTROSE 5%-WATER 100 ML IVPB SCH (01:05)
[2022-04-30] MEDS: VASOPRESSIN 40 UNITS/100 ML BAG IV SCH (04:18)
[2022-04-30] MEDS ORDERED: CEFAZOLIN SODIUM 2 GM in DEXTROSE 5%-WATER 100 ML IVPB SCH (10:00)
[2022-04-30] MEDS: CARVEDILOL 25 MG TABLET (FP) PO SCH ×2 (10:27→21:49)
[2022-04-30] MEDS: PANTOPRAZOLE SODIUM 40 MG VIAL IVPUSH SCH (10:28)
[2022-04-30] MEDS: ACETAMINOPHEN 1000 MG/100 ML BAG IVPB PRN (13:56)
[2022-04-30] MEDS ORDERED: SPIRONOLACTONE 25 MG TABLET PO ONE (14:00)
[2022-04-30 16:41] LABS: BASO % 0.2 % (0-2.0); EOS % 0.6 % (0-4.5); HEMATOCRIT 23.3 % (35.4-49); HEMOGLOBIN 7.6 GM/dL (11.7-16.9); LYMPH % 5.7 % (8-40); MCH 32.3 pg (25.7-33.7); MCHC 32.5 g/dl (32.0-35.9); MEAN CELL VOLUME 99.7 fl (80-96); MEAN PLT VOLUME 12.6 fl (7.5-11.1); MONO % 6.6 % (3.8-10.2); NEUT % 86.9 % (42.8-82.8); RBC 2.34 M/mm3 (4.00-5.60); RDW 20.2 % (11.9-15.9); WHITE BLOOD COUNT 14.9 K/mm3 (4.0-10.0)
[2022-04-30] MEDS: PIPERACILLIN/TAZOB 4.5 GM 4.5 GM in DEXTROSE 5%-WATER 100 ML IVPB SCH (16:42)
[2022-04-30] MEDS: VANCOMYCIN/WATER 1250 MG 1,250 MG/250 ML BAG IVPB SCH (16:43)
[2022-04-30 16:45] LABS: CALCIUM 7.8 mg/dL (8.5-10.1)
[2022-04-30 16:46] LABS: ALBUMIN 1.5 g/dl (3.4-5.0); BLOOD UREA NITROGEN 56.8 mg/dL (7-18)
[2022-04-30 16:49] LABS: CREATININE 1.2 mg/dL (0.55-1.3)
[2022-04-30 16:50] LABS: TOT PROT 5.7 g/dl (6.4-8.2)
[2022-04-30 16:51] LABS: BILIRUBIN,TOTAL 0.8 mg/dL (0.2-1)
[2022-04-30 17:34] LABS: PLATELET COUNT 68 10^3/uL (134-434); PLATELET ESTIMATE DECREASED
[2022-04-30] MEDS: CHLORHEXIDINE GLUCONATE 4% CLEANSER FOR DECOLONIZATION TP SCH (21:50)
[2022-04-30] MEDS: FAT EMUL/SOY/MCT/OLIV/FISH OIL 250 ML IV SCH (21:50)
[2022-05-01] MEDS: PIPERACILLIN/TAZOB 4.5 GM 4.5 GM in DEXTROSE 5%-WATER 100 ML IVPB SCH ×3 (01:11→17:37)
[2022-05-01] MEDS: ACETAMINOPHEN 1000 MG/100 ML BAG IVPB PRN (05:53)
[2022-05-01 07:30] LABS: CALCIUM 7.7 mg/dL (8.5-10.1)
[2022-05-01 07:31] LABS: ALBUMIN 1.5 g/dl (3.4-5.0); BLOOD UREA NITROGEN 57.1 mg/dL (7-18); MAGNESIUM 1.7 mg/dL (1.8-2.4)
[2022-05-01 07:34] LABS: CREATININE 1.4 mg/dL (0.55-1.3)
[2022-05-01 07:35] LABS: TOT PROT 5.8 g/dl (6.4-8.2)
[2022-05-01 07:36] LABS: BILIRUBIN,TOTAL 0.8 mg/dL (0.2-1)
[2022-05-01] MEDS: CARVEDILOL 25 MG TABLET (FP) PO SCH ×2 (09:32→21:00)
[2022-05-01] MEDS: PANTOPRAZOLE SODIUM 40 MG VIAL IVPUSH SCH (09:32)
[2022-05-01] MEDS: POTASSIUM CHLORIDE 40 MEQ in AMINO ACIDS 4.25%/D5W 1,000 ML IV SCH ×2 (09:53→23:13)
[2022-05-01] MEDS ORDERED: MAGNESIUM SULF 50% (8.12 MEQ/2 ML-1 GM VIAL) IVPB ONE (13:36)
[2022-05-01] MEDS: VANCOMYCIN/WATER 1250 MG 1,250 MG/250 ML BAG IVPB SCH (16:32)
[2022-05-01] MEDS: CHLORHEXIDINE GLUCONATE 4% CLEANSER FOR DECOLONIZATION TP SCH (21:00)
[2022-05-01] MEDS: FAT EMUL/SOY/MCT/OLIV/FISH OIL 250 ML IV SCH (21:00)
[2022-05-02] MEDS: PIPERACILLIN/TAZOB 4.5 GM 4.5 GM in DEXTROSE 5%-WATER 100 ML IVPB SCH (02:53)
[2022-05-02 07:31] LABS: BASO % 0.6 % (0-2.0); EOS % 1.2 % (0-4.5); HEMATOCRIT 24.7 % (35.4-49); HEMOGLOBIN 7.8 GM/dL (11.7-16.9); LYMPH % 4.1 % (8-40); MCH 32.3 pg (25.7-33.7); MCHC 31.8 g/dl (32.0-35.9); MEAN CELL VOLUME 101.5 fl (80-96); MEAN PLT VOLUME 13.3 fl (7.5-11.1); NEUT % 89.1 % (42.8-82.8); PLATELET COUNT 69 10^3/uL (134-434); RBC 2.43 M/mm3 (4.00-5.60)
[2022-05-02 08:03] LABS: CALCIUM 7.6 mg/dL (8.5-10.1)
[2022-05-02 08:04] LABS: ALBUMIN 1.6 g/dl (3.4-5.0); BLOOD UREA NITROGEN 57.8 mg/dL (7-18)
[2022-05-02 08:07] LABS: BILIRUBIN,TOTAL 0.9 mg/dL (0.2-1); CREATININE 1.3 mg/dL (0.55-1.3); TOT PROT 6.1 g/dl (6.4-8.2)
[2022-05-02] MEDS: CARVEDILOL 25 MG TABLET (FP) PO SCH ×2 (11:14→21:00)
[2022-05-02] MEDS: CEFEPIME 2 GM in DEXTROSE 5%-WATER 100 ML IVPB SCH ×2 (11:14→18:09)
[2022-05-02] MEDS: PANTOPRAZOLE SODIUM 40 MG VIAL IVPUSH SCH (11:14)
[2022-05-02] MEDS: POTASSIUM CHLORIDE 40 MEQ in AMINO ACIDS 4.25%/D5W 1,000 ML IV SCH (11:22)
[2022-05-02] MEDS: VANCOMYCIN/WATER 1250 MG 1,250 MG/250 ML BAG IVPB SCH (16:58)
[2022-05-02] MEDS ORDERED: ACETAMINOPHEN 1000 MG/100 ML BAG IVPB ONE (18:35)
[2022-05-02] MEDS: ACETAMINOPHEN 325 MG TABLET (FP) PO PRN (18:43)
[2022-05-02] MEDS: CHLORHEXIDINE GLUCONATE 4% CLEANSER FOR DECOLONIZATION TP SCH (21:00)
[2022-05-02] MEDS: FAT EMUL/SOY/MCT/OLIV/FISH OIL 250 ML IV SCH (21:01)
[2022-05-03] MEDS: CEFEPIME 2 GM in DEXTROSE 5%-WATER 100 ML IVPB SCH ×3 (01:04→18:19)
[2022-05-03] MEDS: CARVEDILOL 25 MG TABLET (FP) PO SCH ×2 (08:59→21:11)
[2022-05-03] MEDS: PANTOPRAZOLE SODIUM 40 MG VIAL IVPUSH SCH (09:00)
[2022-05-03] MEDS: FUROSEMIDE 40 MG/4 ML INJECTABLE VIAL IVPUSH SCH (12:10)
[2022-05-03] MEDS: VANCOMYCIN/WATER 1250 MG 1,250 MG/250 ML BAG IVPB SCH (16:46)
[2022-05-03] MEDS: POTASSIUM CHLORIDE 40 MEQ in AMINO ACIDS 4.25%/D5W 1,000 ML IV SCH (21:10)
[2022-05-03] MEDS: CHLORHEXIDINE GLUCONATE 4% CLEANSER FOR DECOLONIZATION TP SCH (21:11)
[2022-05-04] MEDS: CEFEPIME 2 GM in DEXTROSE 5%-WATER 100 ML IVPB SCH ×3 (01:45→18:00)
[2022-05-04 07:00] LABS: HEMATOCRIT 26.2 % (35.4-49); HEMOGLOBIN 8.4 GM/dL (11.7-16.9); MCH 32.8 pg (25.7-33.7); MCHC 32.1 g/dl (32.0-35.9); MEAN CELL VOLUME 102.1 fl (80-96); MEAN PLT VOLUME 11.7 fl (7.5-11.1); PLATELET COUNT 99 10^3/uL (134-434); RBC 2.56 M/mm3 (4.00-5.60); RDW 20.3 % (11.9-15.9); WHITE BLOOD COUNT 13.3 K/mm3 (4.0-10.0)
[2022-05-04 07:25] LABS: CALCIUM 8.1 mg/dL (8.5-10.1)
[2022-05-04 07:26] LABS: ALBUMIN 1.6 g/dl (3.4-5.0); BLOOD UREA NITROGEN 55.5 mg/dL (7-18)
[2022-05-04 07:29] LABS: CREATININE 1.3 mg/dL (0.55-1.3)
[2022-05-04 07:30] LABS: BILIRUBIN,TOTAL 0.9 mg/dL (0.2-1); TOT PROT 6.4 g/dl (6.4-8.2)
[2022-05-04] MEDS: FUROSEMIDE 40 MG/4 ML INJECTABLE VIAL IVPUSH SCH (10:34)
[2022-05-04] MEDS: PANTOPRAZOLE SODIUM 40 MG VIAL IVPUSH SCH (10:34)
[2022-05-04] MEDS: CARVEDILOL 25 MG TABLET (FP) PO SCH ×2 (10:34→21:20)
[2022-05-04] MEDS: VANCOMYCIN/WATER 1250 MG 1,250 MG/250 ML BAG IVPB SCH (17:08)
[2022-05-04] MEDS: APIXABAN 2.5 MG TABLET PO SCH (21:20)
[2022-05-04] MEDS: CHLORHEXIDINE GLUCONATE 4% CLEANSER FOR DECOLONIZATION TP SCH (21:20)
[2022-05-05] MEDS: CEFEPIME 2 GM in DEXTROSE 5%-WATER 100 ML IVPB SCH ×3 (01:00→18:02)
[2022-05-05] MEDS: PANTOPRAZOLE SODIUM 40 MG VIAL IVPUSH SCH (09:40)
[2022-05-05] MEDS: LOSARTAN POTASSIUM 25 MG TABLET PO SCH (09:40)
[2022-05-05] MEDS: APIXABAN 2.5 MG TABLET PO SCH ×2 (09:40→20:59)
[2022-05-05] MEDS: CARVEDILOL 25 MG TABLET (FP) PO SCH ×2 (09:40→20:59)
[2022-05-05] MEDS: FUROSEMIDE 40 MG/4 ML INJECTABLE VIAL IVPUSH SCH (09:40)
[2022-05-05] MEDS: CHLORHEXIDINE GLUCONATE 4% CLEANSER FOR DECOLONIZATION TP SCH (20:59)
[2022-05-06] MEDS: CEFEPIME 2 GM in DEXTROSE 5%-WATER 100 ML IVPB SCH ×3 (02:27→17:38)
[2022-05-06 06:54] LABS: BASO % 0.3 % (0-2.0); EOS % 1.4 % (0-4.5); HEMOGLOBIN 8.8 GM/dL (11.7-16.9); MCHC 32.5 g/dl (32.0-35.9); MEAN CELL VOLUME 101.3 fl (80-96); MEAN PLT VOLUME 10.6 fl (7.5-11.1); MONO % 5.2 % (3.8-10.2); NEUT % 85.1 % (42.8-82.8); PLATELET COUNT 140 10^3/uL (134-434); RBC 2.67 M/mm3 (4.00-5.60); RDW 20.5 % (11.9-15.9); WHITE BLOOD COUNT 12.6 K/mm3 (4.0-10.0)
[2022-05-06 07:25] LABS: ALBUMIN 1.5 g/dl (3.4-5.0); BLOOD UREA NITROGEN 52.5 mg/dL (7-18)
[2022-05-06 07:28] LABS: CREATININE 1.3 mg/dL (0.55-1.3)
[2022-05-06 07:30] LABS: BILIRUBIN,TOTAL 0.8 mg/dL (0.2-1); TOT PROT 6.1 g/dl (6.4-8.2)
[2022-05-06] MEDS: PANTOPRAZOLE SODIUM 40 MG VIAL IVPUSH SCH (09:38)
[2022-05-06] MEDS: CARVEDILOL 25 MG TABLET (FP) PO SCH ×2 (09:38→21:07)
[2022-05-06] MEDS: KCL 10 MEQ IVPB 10 MEQ/100 ML INFUS.BAG IVPB SCH ×2 (09:38→11:00)
[2022-05-06] MEDS: LOSARTAN POTASSIUM 25 MG TABLET PO SCH (09:38)
[2022-05-06] MEDS: APIXABAN 2.5 MG TABLET PO SCH ×2 (09:38→21:07)
[2022-05-06] MEDS: FUROSEMIDE 40 MG/4 ML INJECTABLE VIAL IVPUSH SCH (09:39)
[2022-05-06 10:18] LABS: ANISOCYTOSIS 2+; MACROCYTOSIS 0
[2022-05-06] MEDS: POTASSIUM CHLORIDE ORAL LIQUID 20 MEQ/15 ML PO SCH ×3 (11:00→21:07)
[2022-05-06] MEDS: CHLORHEXIDINE GLUCONATE 4% CLEANSER FOR DECOLONIZATION TP SCH (21:07)
[2022-05-07] MEDS: CEFEPIME 2 GM in DEXTROSE 5%-WATER 100 ML IVPB SCH ×3 (01:23→18:22)
[2022-05-07 08:00] LABS: ALBUMIN 1.6 g/dl (3.4-5.0); BLOOD UREA NITROGEN 48.8 mg/dL (7-18); CALCIUM 8.1 mg/dL (8.5-10.1)
[2022-05-07 08:01] LABS: MAGNESIUM 1.9 mg/dL (1.8-2.4)
[2022-05-07 08:03] LABS: CREATININE 1.4 mg/dL (0.55-1.3)
[2022-05-07 08:05] LABS: BILIRUBIN,TOTAL 0.8 mg/dL (0.2-1); TOT PROT 6.1 g/dl (6.4-8.2)
[2022-05-07] MEDS: APIXABAN 2.5 MG TABLET PO SCH ×2 (09:33→21:09)
[2022-05-07] MEDS: FUROSEMIDE 40 MG TABLET (FP) PO SCH (09:33)
[2022-05-07] MEDS: CARVEDILOL 25 MG TABLET (FP) PO SCH ×2 (09:33→21:09)
[2022-05-07] MEDS: LOSARTAN POTASSIUM 25 MG TABLET PO SCH (09:33)
[2022-05-07] MEDS: POTASSIUM CHLORIDE ORAL LIQUID 20 MEQ/15 ML PO SCH (09:34)
[2022-05-07] MEDS: PANTOPRAZOLE SODIUM 40 MG VIAL IVPUSH SCH (09:34)
[2022-05-07] MEDS: NYSTATIN 500,000 UNITS/5 ML SUSPENSION PO SCH ×2 (13:03→18:22)
[2022-05-07] MEDS: CHLORHEXIDINE GLUCONATE 4% CLEANSER FOR DECOLONIZATION TP SCH (21:09)
[2022-05-08] MEDS: NYSTATIN 500,000 UNITS/5 ML SUSPENSION PO SCH ×5 (01:00→23:44)
[2022-05-08] MEDS: CEFEPIME 2 GM in DEXTROSE 5%-WATER 100 ML IVPB SCH ×3 (02:50→17:25)
[2022-05-08] MEDS: LOSARTAN POTASSIUM 25 MG TABLET PO SCH (09:56)
[2022-05-08] MEDS: CARVEDILOL 25 MG TABLET (FP) PO SCH ×2 (09:56→21:13)
[2022-05-08] MEDS: APIXABAN 2.5 MG TABLET PO SCH ×2 (09:56→21:13)
[2022-05-08] MEDS: PANTOPRAZOLE SODIUM 40 MG VIAL IVPUSH SCH (09:56)
[2022-05-08] MEDS: FUROSEMIDE 40 MG TABLET (FP) PO SCH (09:56)
[2022-05-08] MEDS: AMINO ACIDS 4.25%/D5W 1,000 ML IV SCH (17:27)
[2022-05-08 18:10] LABS: BASO % 0.4 % (0-2.0); EOS % 1.3 % (0-4.5); HEMATOCRIT 25.6 % (35.4-49); HEMOGLOBIN 8.3 GM/dL (11.7-16.9); LYMPH % 9.6 % (8-40); MCH 33.2 pg (25.7-33.7); MCHC 32.6 g/dl (32.0-35.9); MEAN CELL VOLUME 101.6 fl (80-96); MONO % 3.9 % (3.8-10.2); NEUT % 84.8 % (42.8-82.8); PLATELET COUNT 124 10^3/uL (134-434); RBC 2.52 M/mm3 (4.00-5.60); RDW 20.9 % (11.9-15.9); WHITE BLOOD COUNT 12.6 K/mm3 (4.0-10.0)
[2022-05-08 18:38] LABS: CHLORIDE 121 mmol/L (98-107); SODIUM 151 mmol/L (136-145)
[2022-05-08 18:43] LABS: ALBUMIN 1.6 g/dl (3.4-5.0); BLOOD UREA NITROGEN 47.1 mg/dL (7-18); CALCIUM 7.9 mg/dL (8.5-10.1); CO2 21 mmol/L (21-32); GLUCOSE,RANDOM 167 mg/dL (74-106)
[2022-05-08 18:45] LABS: CREATININE 1.3 mg/dL (0.55-1.3); SGPT/ALT 30 U/L (13-61)
[2022-05-08 18:46] LABS: SGOT/AST 34 U/L (15-37)
[2022-05-08 18:47] LABS: BILIRUBIN,TOTAL 0.8 mg/dL (0.2-1)
[2022-05-08 18:48] LABS: ALK PHOS 120 U/L (45-117)
[2022-05-08 19:22] LABS: ANION GAP 9 MMOL/L (8-16)
[2022-05-08] MEDS ORDERED: POTASSIUM CHLORIDE TABS 20 MEQ TABLET.ER (FP) PO ONE (19:41)
[2022-05-08] MEDS: KCL 10 MEQ IVPB 10 MEQ/100 ML INFUS.BAG IVPB SCH ×3 (20:31→22:49)
[2022-05-08] MEDS: CHLORHEXIDINE GLUCONATE 4% CLEANSER FOR DECOLONIZATION TP SCH (21:13)
[2022-05-09] MEDS: CEFEPIME 2 GM in DEXTROSE 5%-WATER 100 ML IVPB SCH ×3 (01:00→18:42)
[2022-05-09] MEDS: NYSTATIN 500,000 UNITS/5 ML SUSPENSION PO SCH ×4 (06:07→23:25)
[2022-05-09] MEDS: PANTOPRAZOLE SODIUM 40 MG VIAL IVPUSH SCH (09:49)
[2022-05-09] MEDS: LOSARTAN POTASSIUM 25 MG TABLET PO SCH (09:49)
[2022-05-09] MEDS: CARVEDILOL 25 MG TABLET (FP) PO SCH ×2 (09:49→21:14)
[2022-05-09] MEDS: FUROSEMIDE 40 MG TABLET (FP) PO SCH (09:49)
[2022-05-09] MEDS: APIXABAN 2.5 MG TABLET PO SCH ×2 (09:50→21:14)
[2022-05-09] MEDS: AMINO ACIDS 4.25%/D5W 1,000 ML IV SCH (10:22)
[2022-05-09] MEDS ORDERED: POTASSIUM CHLORIDE ORAL LIQUID 20 MEQ/15 ML PO ONE (10:52)
[2022-05-09] MEDS ORDERED: KCL 10 MEQ IVPB 10 MEQ/100 ML INFUS.BAG IVPB SCH (11:00)
[2022-05-09] MEDS: POTASSIUM CHLORIDE 40 MEQ in AMINO ACIDS 4.25%/D5W 1,000 ML IV SCH (13:09)
[2022-05-09] MEDS: POTASSIUM CHLORIDE ORAL LIQUID 20 MEQ/15 ML PO SCH (13:09)
[2022-05-09 14:23] LABS: ARTERIAL BLD GAS O2 SATURATION 97.3 % (95-98); ARTERIAL BLOOD GAS BASE EXCESS -1.2 mmol/L (-2-2); ARTERIAL BLOOD GAS PO2 94.5 mmHg (80-100); ARTERIAL BLOOD GAS pH 7.401 (7.350-7.450)
[2022-05-09 14:24] LABS: ALLENS TEST POSITIVE
[2022-05-09 15:23] LABS: CHLORIDE 118 mmol/L (98-107); SODIUM 149 mmol/L (136-145)
[2022-05-09 15:26] LABS: CALCIUM 8.5 mg/dL (8.5-10.1); CO2 23 mmol/L (21-32)
[2022-05-09 15:27] LABS: BLOOD UREA NITROGEN 51.1 mg/dL (7-18); GLUCOSE,RANDOM 134 mg/dL (74-106); MAGNESIUM 1.9 mg/dL (1.8-2.4)
[2022-05-09 15:30] LABS: ANION GAP 8 MMOL/L (8-16); CREATININE 1.4 mg/dL (0.55-1.3)
[2022-05-09] MEDS ORDERED: VANCOMYCIN/WATER FOR INJ (PEG) 1,000 MG/200 ML BAG IVPB ONE (15:55)
[2022-05-09] MEDS: CHLORHEXIDINE GLUCONATE 4% CLEANSER FOR DECOLONIZATION TP SCH (21:14)
[2022-05-10] MEDS: CEFEPIME 2 GM in DEXTROSE 5%-WATER 100 ML IVPB SCH ×3 (00:59→18:43)
[2022-05-10] MEDS: NYSTATIN 500,000 UNITS/5 ML SUSPENSION PO SCH ×5 (06:16→23:19)
[2022-05-10] MEDS: POTASSIUM CHLORIDE 40 MEQ in AMINO ACIDS 4.25%/D5W 1,000 ML IV SCH ×4 (06:17→23:19)
[2022-05-10 06:27] LABS: BASO % 0.6 % (0-2.0); EOS % 1.6 % (0-4.5); HEMATOCRIT 28.1 % (35.4-49); HEMOGLOBIN 8.7 GM/dL (11.7-16.9); LYMPH % 12.4 % (8-40); MCH 31.8 pg (25.7-33.7); MCHC 31.1 g/dl (32.0-35.9); MEAN CELL VOLUME 102.3 fl (80-96); MEAN PLT VOLUME 10.7 fl (7.5-11.1); MONO % 4.9 % (3.8-10.2); NEUT % 80.5 % (42.8-82.8); PLATELET COUNT 117 10^3/uL (134-434); RBC 2.74 M/mm3 (4.00-5.60); RDW 20.9 % (11.9-15.9); WHITE BLOOD COUNT 12.3 K/mm3 (4.0-10.0)
[2022-05-10 06:49] LABS: CALCIUM 8.1 mg/dL (8.5-10.1)
[2022-05-10 06:50] LABS: ALBUMIN 1.6 g/dl (3.4-5.0); BLOOD UREA NITROGEN 54.4 mg/dL (7-18)
[2022-05-10 06:53] LABS: CREATININE 1.3 mg/dL (0.55-1.3)
[2022-05-10 06:54] LABS: TOT PROT 6.5 g/dl (6.4-8.2)
[2022-05-10 06:55] LABS: BILIRUBIN,TOTAL 0.8 mg/dL (0.2-1)
[2022-05-10 08:42] LABS: ANISOCYTOSIS 1+; MACROCYTOSIS 1+
[2022-05-10] MEDS ORDERED: POTASSIUM CHLORIDE ORAL LIQUID 20 MEQ/15 ML PO ONE (09:43)
[2022-05-10] MEDS: PANTOPRAZOLE SODIUM 40 MG VIAL IVPUSH SCH (10:24)
[2022-05-10] MEDS: LOSARTAN POTASSIUM 25 MG TABLET PO SCH (10:25)
[2022-05-10] MEDS: CARVEDILOL 25 MG TABLET (FP) PO SCH ×2 (10:25→21:13)
[2022-05-10] MEDS: FUROSEMIDE 40 MG TABLET (FP) PO SCH (10:25)
[2022-05-10] MEDS: APIXABAN 2.5 MG TABLET PO SCH ×2 (10:25→21:13)
[2022-05-10] MEDS: POTASSIUM CHLORIDE ORAL LIQUID 20 MEQ/15 ML PO SCH (10:25)
[2022-05-10] MEDS: KCL 10 MEQ IVPB 10 MEQ/100 ML INFUS.BAG IVPB SCH ×2 (11:04→12:07)
[2022-05-10] MEDS: CHLORHEXIDINE GLUCONATE 4% CLEANSER FOR DECOLONIZATION TP SCH (21:14)
[2022-05-11] MEDS: CEFEPIME 2 GM in DEXTROSE 5%-WATER 100 ML IVPB SCH ×2 (01:08→10:12)
[2022-05-11] MEDS: NYSTATIN 500,000 UNITS/5 ML SUSPENSION PO SCH ×4 (05:05→23:01)
[2022-05-11 07:16] LABS: BASO % 0.7 % (0-2.0); EOS % 1.5 % (0-4.5); HEMATOCRIT 28.4 % (35.4-49); HEMOGLOBIN 9.3 GM/dL (11.7-16.9); LYMPH % 12.2 % (8-40); MCHC 32.6 g/dl (32.0-35.9); MEAN CELL VOLUME 101.1 fl (80-96); MEAN PLT VOLUME 10.8 fl (7.5-11.1); MONO % 5.6 % (3.8-10.2); PLATELET COUNT 111 10^3/uL (134-434); RBC 2.81 M/mm3 (4.00-5.60); RDW 19.9 % (11.9-15.9); WHITE BLOOD COUNT 11.5 K/mm3 (4.0-10.0)
[2022-05-11 07:39] LABS: ALBUMIN 1.6 g/dl (3.4-5.0)
[2022-05-11] MEDS ORDERED: POTASSIUM CHLORIDE ORAL LIQUID 20 MEQ/15 ML PO ONE (07:40)
[2022-05-11 07:42] LABS: CREATININE 1.3 mg/dL (0.55-1.3)
[2022-05-11 07:43] LABS: BILIRUBIN,TOTAL 0.9 mg/dL (0.2-1); TOT PROT 6.7 g/dl (6.4-8.2)
[2022-05-11] MEDS: POTASSIUM CHLORIDE ORAL LIQUID 20 MEQ/15 ML PO SCH (10:06)
[2022-05-11] MEDS: PANTOPRAZOLE SODIUM 40 MG VIAL IVPUSH SCH (10:12)
[2022-05-11] MEDS: KCL 10 MEQ IVPB 10 MEQ/100 ML INFUS.BAG IVPB SCH ×3 (10:12→12:25)
[2022-05-11] MEDS: ACETAMINOPHEN 325 MG TABLET (FP) PO PRN (10:13)
[2022-05-11] MEDS: FUROSEMIDE 40 MG TABLET (FP) PO SCH (10:14)
[2022-05-11] MEDS: APIXABAN 2.5 MG TABLET PO SCH ×2 (10:14→22:14)
[2022-05-11] MEDS: CARVEDILOL 25 MG TABLET (FP) PO SCH ×2 (10:14→22:14)
[2022-05-11] MEDS: LOSARTAN POTASSIUM 25 MG TABLET PO SCH (10:15)
[2022-05-11] MEDS: CEFAZOLIN SODIUM 2 GM in DEXTROSE 5%-WATER 100 ML IVPB SCH (18:03)
[2022-05-11] MEDS: POTASSIUM CHLORIDE 40 MEQ in AMINO ACIDS 4.25%/D5W 1,000 ML IV SCH ×2 (18:07→20:19)
[2022-05-11] MEDS: CHLORHEXIDINE GLUCONATE 4% CLEANSER FOR DECOLONIZATION TP SCH (22:14)
[2022-05-12] MEDS: CEFAZOLIN SODIUM 2 GM in DEXTROSE 5%-WATER 100 ML IVPB SCH ×3 (01:51→17:59)
[2022-05-12] MEDS: NYSTATIN 500,000 UNITS/5 ML SUSPENSION PO SCH ×3 (06:19→17:59)
[2022-05-12] MEDS: POTASSIUM CHLORIDE 40 MEQ in AMINO ACIDS 4.25%/D5W 1,000 ML IV SCH ×2 (06:19→21:15)
[2022-05-12 07:41] LABS: BASO % 0.6 % (0-2.0); EOS % 1.8 % (0-4.5); HEMATOCRIT 26.4 % (35.4-49); HEMOGLOBIN 8.5 GM/dL (11.7-16.9); LYMPH % 13.4 % (8-40); MCH 32.4 pg (25.7-33.7); MCHC 32.3 g/dl (32.0-35.9); MEAN CELL VOLUME 100.3 fl (80-96); MONO % 5.9 % (3.8-10.2); NEUT % 78.3 % (42.8-82.8); PLATELET COUNT 90 10^3/uL (134-434); RBC 2.63 M/mm3 (4.00-5.60); RDW 19.2 % (11.9-15.9); WHITE BLOOD COUNT 11.9 K/mm3 (4.0-10.0)
[2022-05-12 08:03] LABS: CALCIUM 8.6 mg/dL (8.5-10.1)
[2022-05-12 08:04] LABS: ALBUMIN 1.6 g/dl (3.4-5.0); BLOOD UREA NITROGEN 56.4 mg/dL (7-18)
[2022-05-12 08:07] LABS: CREATININE 1.4 mg/dL (0.55-1.3)
[2022-05-12 08:08] LABS: BILIRUBIN,TOTAL 0.6 mg/dL (0.2-1); TOT PROT 6.3 g/dl (6.4-8.2)
[2022-05-12] MEDS: POTASSIUM CHLORIDE ORAL LIQUID 20 MEQ/15 ML PO SCH (09:15)
[2022-05-12] MEDS: FUROSEMIDE 40 MG TABLET (FP) PO SCH (09:15)
[2022-05-12] MEDS: LOSARTAN POTASSIUM 50 MG TABLET PO SCH (09:15)
[2022-05-12] MEDS: PANTOPRAZOLE SODIUM 40 MG VIAL IVPUSH SCH (09:15)
[2022-05-12] MEDS: APIXABAN 2.5 MG TABLET PO SCH ×2 (09:15→21:30)
[2022-05-12] MEDS: CARVEDILOL 25 MG TABLET (FP) PO SCH ×2 (09:15→21:29)
[2022-05-12 13:49] LABS: MAGNESIUM 1.8 mg/dL (1.8-2.4)
[2022-05-12 13:52] LABS: PHOSPHOROUS 1.8 mg/dL (2.5-4.9)
[2022-05-12] MEDS: CHLORHEXIDINE GLUCONATE 4% CLEANSER FOR DECOLONIZATION TP SCH (21:15)
[2022-05-13] MEDS: POTASSIUM CHLORIDE 40 MEQ in AMINO ACIDS 4.25%/D5W 1,000 ML IV SCH ×2 (00:20→14:00)
[2022-05-13] MEDS: CEFAZOLIN SODIUM 2 GM in DEXTROSE 5%-WATER 100 ML IVPB SCH ×3 (02:12→18:20)
[2022-05-13] MEDS: NYSTATIN 500,000 UNITS/5 ML SUSPENSION PO SCH ×4 (02:13→18:21)
[2022-05-13] MEDS: CARVEDILOL 25 MG TABLET (FP) PO SCH ×2 (09:44→21:20)
[2022-05-13] MEDS: FUROSEMIDE 40 MG TABLET (FP) PO SCH (09:44)
[2022-05-13] MEDS: POTASSIUM CHLORIDE ORAL LIQUID 20 MEQ/15 ML PO SCH (09:44)
[2022-05-13] MEDS: LOSARTAN POTASSIUM 50 MG TABLET PO SCH (09:44)
[2022-05-13] MEDS: PANTOPRAZOLE SODIUM 40 MG VIAL IVPUSH SCH (09:44)
[2022-05-13] MEDS: APIXABAN 2.5 MG TABLET PO SCH ×2 (09:44→21:20)
[2022-05-13] MEDS ORDERED: FAMOTIDINE 20 MG TABLET PO SCH (11:45)
[2022-05-13] MEDS: CHLORHEXIDINE GLUCONATE 4% CLEANSER FOR DECOLONIZATION TP SCH (21:20)
[2022-05-14] MEDS: NYSTATIN 500,000 UNITS/5 ML SUSPENSION PO SCH ×4 (00:43→17:07)
[2022-05-14] MEDS: CEFAZOLIN SODIUM 2 GM in DEXTROSE 5%-WATER 100 ML IVPB SCH ×3 (01:43→17:06)
[2022-05-14 07:25] LABS: BASO % 0.4 % (0-2.0); HEMATOCRIT 25.7 % (35.4-49); HEMOGLOBIN 8.2 GM/dL (11.7-16.9); LYMPH % 13.5 % (8-40); MCH 32.4 pg (25.7-33.7); MEAN CELL VOLUME 101.2 fl (80-96); MEAN PLT VOLUME 11.4 fl (7.5-11.1); MONO % 6.6 % (3.8-10.2); NEUT % 78.5 % (42.8-82.8); PLATELET COUNT 73 10^3/uL (134-434); RBC 2.54 M/mm3 (4.00-5.60); RDW 20.2 % (11.9-15.9); WHITE BLOOD COUNT 10.9 K/mm3 (4.0-10.0)
[2022-05-14 07:43] LABS: CALCIUM 8.4 mg/dL (8.5-10.1)
[2022-05-14 07:44] LABS: ALBUMIN 1.6 g/dl (3.4-5.0); BLOOD UREA NITROGEN 71.2 mg/dL (7-18)
[2022-05-14 07:46] LABS: CREATININE 1.8 mg/dL (0.55-1.3)
[2022-05-14 07:48] LABS: BILIRUBIN,TOTAL 0.6 mg/dL (0.2-1); TOT PROT 6.3 g/dl (6.4-8.2)
[2022-05-14] MEDS ORDERED: SODIUM CHLORIDE 500 ML IV STA (08:31)
[2022-05-14] MEDS ORDERED: SODIUM CHLORIDE 250 ML IV STA (10:03)
[2022-05-14] MEDS ORDERED: POTASSIUM CHLORIDE 40 MEQ in AMINO ACIDS 4.25%/D5W 1,000 ML IV SCH ×2 (10:04→20:12)
[2022-05-14] MEDS: PANTOPRAZOLE SODIUM 40 MG VIAL IVPUSH SCH (10:12)
[2022-05-14] MEDS: POTASSIUM CHLORIDE 40 MEQ in AMINO ACIDS 4.25%/D5W 1,000 ML IV SCH (10:40)
[2022-05-14] MEDS: FUROSEMIDE 40 MG TABLET (FP) PO SCH (10:40)
[2022-05-14] MEDS: CARVEDILOL 25 MG TABLET (FP) PO SCH ×2 (10:44→22:13)
[2022-05-14] MEDS: LOSARTAN POTASSIUM 50 MG TABLET PO SCH (10:45)
[2022-05-14] MEDS: APIXABAN 2.5 MG TABLET PO SCH ×2 (10:55→22:13)
[2022-05-14] MEDS: POTASSIUM CHLORIDE ORAL LIQUID 20 MEQ/15 ML PO SCH (10:55)
[2022-05-14] MEDS: CHLORHEXIDINE GLUCONATE 4% CLEANSER FOR DECOLONIZATION TP SCH (22:14)
[2022-05-15] MEDS: NYSTATIN 500,000 UNITS/5 ML SUSPENSION PO SCH ×2 (00:31→09:32)
[2022-05-15] MEDS: CEFAZOLIN SODIUM 2 GM in DEXTROSE 5%-WATER 100 ML IVPB SCH ×2 (02:31→09:32)
[2022-05-15 07:41] LABS: CALCIUM 8.7 mg/dL (8.5-10.1)
[2022-05-15 07:42] LABS: ALBUMIN 1.7 g/dl (3.4-5.0); BLOOD UREA NITROGEN 81.9 mg/dL (7-18)
[2022-05-15 07:45] LABS: CREATININE 2.8 mg/dL (0.55-1.3)
[2022-05-15 07:47] LABS: BILIRUBIN,TOTAL 0.6 mg/dL (0.2-1); TOT PROT 6.6 g/dl (6.4-8.2)
[2022-05-15] MEDS: CARVEDILOL 25 MG TABLET (FP) PO SCH (09:33)
[2022-05-15] MEDS: LOSARTAN POTASSIUM 50 MG TABLET PO SCH (09:34)
[2022-05-15] MEDS: APIXABAN 2.5 MG TABLET PO SCH (09:34)
[2022-05-15] MEDS: POTASSIUM CHLORIDE ORAL LIQUID 20 MEQ/15 ML PO SCH (09:35)
[2022-05-15] MEDS ORDERED: METOPROLOL TARTRATE 5 MG/5 ML VIAL IVPUSH PRN (10:13)
[2022-05-15] MEDS ORDERED: ALBUTEROL SO4 2.5/IPRATROPIUM 0.5 INH SOL 3 ML VIAL.NEB. NEB PRN (10:14)
[2022-05-15] MEDS ORDERED: ACETAMINOPHEN 1000 MG/100 ML BAG IVPB PRN (10:14)
[2022-05-15] MEDS ORDERED: SODIUM CHLORIDE 500 ML IV STA (10:54)
[2022-05-15] MEDS ORDERED: DEXTROSE 5%-WATER - 1,000 ML IV SCH (11:00)
[2022-05-15 12:50] LABS: CALCIUM 9.1 mg/dL (8.5-10.1)
[2022-05-15 12:51] LABS: ALBUMIN 1.7 g/dl (3.4-5.0); BLOOD UREA NITROGEN 90.3 mg/dL (7-18)
[2022-05-15 12:54] LABS: CREATININE 3.2 mg/dL (0.55-1.3)
[2022-05-15 12:55] LABS: BILIRUBIN,TOTAL 0.6 mg/dL (0.2-1); TOT PROT 6.5 g/dl (6.4-8.2)
[2022-05-15] MEDS: PIPERACILLIN/TAZOB 2.25 GM 2.25 GM in DEXTROSE 5%-WATER - 50 ML IVPB SCH ×2 (14:07→18:06)
[2022-05-15] MEDS: AMINO ACIDS 4.25%/D5W 1,000 ML IV SCH (14:07)
[2022-05-15] MEDS: CHLORHEXIDINE GLUCONATE 4% CLEANSER FOR DECOLONIZATION TP SCH (23:17)
[2022-05-16] MEDS: PIPERACILLIN/TAZOB 2.25 GM 2.25 GM in DEXTROSE 5%-WATER - 50 ML IVPB SCH ×3 (02:27→18:13)
[2022-05-16] MEDS ORDERED: SODIUM CHLORIDE 500 ML IV STA (04:38)
[2022-05-16 06:52] LABS: BLOOD UREA NITROGEN 103.8 mg/dL (7-18); CALCIUM 8.5 mg/dL (8.5-10.1)
[2022-05-16] MEDS ORDERED: SODIUM CHLORIDE 250 ML IV STA (10:14)
[2022-05-16] MEDS: AMINO ACIDS 4.25%/D5W 1,000 ML IV SCH (13:06)
[2022-05-16] MEDS: CHLORHEXIDINE GLUCONATE 4% CLEANSER FOR DECOLONIZATION TP SCH (21:57)
[2022-05-17 00:41] VITALS: RESP 24
[2022-05-17] MEDS: PIPERACILLIN/TAZOB 2.25 GM 2.25 GM in DEXTROSE 5%-WATER - 50 ML IVPB SCH ×2 (02:12→10:39)
[2022-05-17 06:58] LABS: BASO % 0.2 % (0-2.0); EOS % 0.2 % (0-4.5); HEMATOCRIT 23.3 % (35.4-49); HEMOGLOBIN 7.2 GM/dL (11.7-16.9); LYMPH % 17.6 % (8-40); MCH 31.4 pg (25.7-33.7); MCHC 30.7 g/dl (32.0-35.9); MEAN CELL VOLUME 102.2 fl (80-96); MEAN PLT VOLUME 12.1 fl (7.5-11.1); MONO % 5.9 % (3.8-10.2); NEUT % 76.1 % (42.8-82.8); PLATELET COUNT 76 10^3/uL (134-434); RBC 2.28 M/mm3 (4.00-5.60); RDW 19.6 % (11.9-15.9); WHITE BLOOD COUNT 10.2 K/mm3 (4.0-10.0)
[2022-05-17 07:42] LABS: CHLORIDE 111 mmol/L (98-107); SODIUM 139 mmol/L (136-145)
[2022-05-17 07:50] LABS: ALBUMIN 1.6 g/dl (3.4-5.0); ANION GAP 13 MMOL/L (8-16); CALCIUM 8.5 mg/dL (8.5-10.1); CO2 15 mmol/L (21-32); GLUCOSE,RANDOM 104 mg/dL (74-106)
[2022-05-17 07:53] LABS: SGOT/AST 36 U/L (15-37); SGPT/ALT 6 U/L (13-61)
[2022-05-17 07:55] LABS: BILIRUBIN,TOTAL 0.7 mg/dL (0.2-1); LDH 258 U/L (87-246); TOT PROT 6.1 g/dl (6.4-8.2)
[2022-05-17 07:56] LABS: ALK PHOS 103 U/L (45-117)
[2022-05-17 07:59] LABS: BLOOD UREA NITROGEN 124.1 mg/dL (7-18)
[2022-05-17] MEDS: AMINO ACIDS 4.25%/D5W 1,000 ML IV SCH (12:54)
[2022-05-17 13:09] VITALS: BP 97/67; PULSE 78
[2022-05-17 13:10] VITALS: TEMP 98
== END 2022-05-17 19:00 | disposition expired | DRG 871 ==
LOC: JER 20:09 → JERBED 23:44 → J4W 04-03 11:35 → JICU 04-03 18:33 → J4W 04-06 13:49 → JICU 04-17 01:50 → J2W 04-25 14:56
PROVIDERS: ADMIT Internal Medicine; ATTEND Internal Medicine
PROC: 5A1945Z Respiratory Ventilation, 24-96 Consecutive Hours (ICD-10-PCS; principal; 2022-04-17)
PROC: 0BH17EZ Insertion of Endotracheal Airway into Trachea, Via Natural or Artificial Opening (ICD-10-PCS; 2022-04-17)
PROC: 05HM33Z Insertion of Infusion Device into Right Internal Jugular Vein, Percutaneous Approach (ICD-10-PCS; 2022-04-17)
PROC: B543ZZA Ultrasonography of Right Jugular Veins, Guidance (ICD-10-PCS; 2022-04-17)
PROC: 05HB33Z Insertion of Infusion Device into Right Basilic Vein, Percutaneous Approach (ICD-10-PCS; 2022-04-24)
PROC: 30233N1 Transfusion of Nonautologous Red Blood Cells into Peripheral Vein, Percutaneous Approach (ICD-10-PCS; 2022-04-24)
PROC: XW033E5 Introduction of Remdesivir Anti-infective into Peripheral Vein, Percutaneous Approach, New Technology Group 5 (ICD-10-PCS; 2022-05-11)
PROC: 3E0333Z Introduction of Anti-inflammatory into Peripheral Vein, Percutaneous Approach (ICD-10-PCS; 2022-05-11)
DX: A41.01 Sepsis due to Methicillin susceptible Staphylococcus aureus (principal); G93.41 Metabolic encephalopathy; R65.21 Severe sepsis with septic shock; I50.33 Acute on chronic diastolic (congestive) heart failure; J96.01 Acute respiratory failure with hypoxia; U07.1 COVID-19; J96.02 Acute respiratory failure with hypercapnia; J69.0 Pneumonitis due to inhalation of food and vomit; N17.9 Acute kidney failure, unspecified; I48.21 Permanent atrial fibrillation; E87.2 Acidosis; I47.2 Ventricular tachycardia; I24.8 Other forms of acute ischemic heart disease; E87.0 Hyperosmolality and hypernatremia; E87.4 Mixed disorder of acid-base balance; B37.0 Candidal stomatitis; I13.0 Hypertensive heart and chronic kidney disease with heart failure and stage 1 through stage 4 chronic kidney disease, or unspecified chronic kidney disease; N39.0 Urinary tract infection, site not specified; I46.9 Cardiac arrest, cause unspecified; R94.5 Abnormal results of liver function studies; I25.10 Atherosclerotic heart disease of native coronary artery without angina pectoris; N18.9 Chronic kidney disease, unspecified; K52.89 Other specified noninfective gastroenteritis and colitis; R11.2 Nausea with vomiting, unspecified; I45.10 Unspecified right bundle-branch block; I48.91 Unspecified atrial fibrillation; B96.5 Pseudomonas (aeruginosa) (mallei) (pseudomallei) as the cause of diseases classified elsewhere; E27.9 Disorder of adrenal gland, unspecified; D72.829 Elevated white blood cell count, unspecified; K76.89 Other specified diseases of liver; I08.1 Rheumatic disorders of both mitral and tricuspid valves; I27.20 Pulmonary hypertension, unspecified; E87.6 Hypokalemia; R77.8 Other specified abnormalities of plasma proteins; E86.1 Hypovolemia; K52.9 Noninfective gastroenteritis and colitis, unspecified; K80.20 Calculus of gallbladder without cholecystitis without obstruction; D69.6 Thrombocytopenia, unspecified; R74.01 Elevation of levels of liver transaminase levels; Z85.46 Personal history of malignant neoplasm of prostate; Z95.2 Presence of prosthetic heart valve; Z95.1 Presence of aortocoronary bypass graft; Z66 Do not resuscitate
CPT/HCPCS: 36415; 36430; 36600; 70450-TC; 71045-TC-FY; 71046-TC-FY; 71250-TC; 72128-TC; 72131-TC; 72141-TC; 72146-TC; 72148-TC; 74176-TC; 74230-TC-FY; 76775-TC; 76856-TC; 80048; 80053; 80061; 80076; 81003; 82140; 82248; 82272; 82570; 82607; 82728; 82803; 82962; 83605; 83615; 83735; 83880; 83930; 83935; 84100; 84132; 84133; 84156; 84300; 84439; 84443; 84484; 85025; 85027; 85379; 85384; 85610; 85651; 85730; 86140; 86780; 86850; 86900; 86901; 86922; 87040; 87045; 87046; 87070; 87077; 87086; 87186; 87205; 87324; 87449; 93005; 93010; 93306-TC; 94002; 94640; 94660; 97116-GP; 97162-GP; 99291; C9399; C9803-CS; G0480; J1100; J3490; P9058; U0003; U0005